=== PATIENT | female | born 1955 | race American Indian/Alaskan Native ===

== ENCOUNTER 2016-12-07 10:17 | Emergency (ER) | payer MEDICARE ==
[2016-12-07 10:41] VITALS: BP 127/83
[2016-12-07] MEDS ORDERED: INDOCIN PO ONE (13:00)
--- NOTE | 2016-12-07 13:00 | XRay Report ---
RIGHT KNEE, 3 views: History: Pain and swelling. The bony architecture is intact without evidence of fracture or dislocation. No significant soft tissue abnormality is seen. IMPRESSION: Normal right knee.
--- NOTE | 2016-12-07 13:17 | Emergency Department Report ---
ED Extremity Problem HPI - General Chief complaint: Extremity Injury, Lower Stated complaint: RT KNEE PAIN Time Seen by Provider: 12/07/16 12:13 Source: patient Mode of arrival: Ambulatory Limitations: No Limitations - History of Present Illness Initial comments: PT c/o R knee pain since Saturday. PT states she has a hx of gout and she thought the pain would go away. PT denies injury or trauma but states that she does remember stumbling when walking out of [employer] on Saturday. PT has been ambulatory at home with cane and she drove herself to the ED. MD Complaint: joint paint -: Gradual, days(s) Location: right, knee History of Same: No Severity scale (0 -10): 9 Quality: aching, sharp (if moving knee ) Improves with: rest Worsens with: walking, palpation Associated Symptoms: denies other symptoms. denies: fever - Related Data Previous Rx's Medication Instructions Recorded Last Taken Type Acetaminophen/Codeine [Tylenol #3] 1 tab PO Q6H PRN #12 tab 12/07/16 Unknown Rx Indomethacin 50 mg PO Q8H PRN #12 capsule 12/07/16 Unknown Rx Allergies Allergy/AdvReac Type Severity Reaction Status Date / Time No Known Allergies Allergy Verified 12/30/13 10:39 ED Review of Systems ROS: Stated complaint: RT KNEE PAIN Other details as noted in HPI Constitutional: denies: chills, fever Gastrointestinal: denies: nausea, vomiting Musculoskeletal: joint swelling Skin: denies: change in color Neurological: denies: headache ED Past Medical Hx - Past Medical History Previous Medical History?: Yes Hx Hypertension: Yes Hx Diabetes: Yes Additional medical history: chronic back pain. gout - Surgical History Past Surgical History?: Yes Additional Surgical History: L kidney removal - Social History Smoking Status: Never Smoker Substance Use Type: None - Medications Home Medications: Home Medications Medication Instructions Recorded Confirmed Last Taken Type Acetaminophen/Codeine [Tylenol #3] 1 tab PO Q6H PRN #12 tab 12/07/16 Unknown Rx Indomethacin 50 mg PO Q8H PRN #12 capsule 12/07/16 Unknown Rx ED Physical Exam - General Limitations: No Limitations General appearance: alert, in no apparent distress - Head Head exam: Present: atraumatic, normocephalic - Eye Eye exam: Present: normal appearance. Absent: conjunctival injection - Neck Neck exam: Present: normal inspection, full ROM - Respiratory Respiratory exam: Present: normal lung sounds bilaterally. Absent: respiratory distress, wheezes - Cardiovascular Cardiovascular Exam: Present: regular rate, normal rhythm - Expanded Lower Extremity Exam Right Knee exam: Present: full ROM, tenderness, swelling (ant ). Absent: ecchymosis, deformity, crepidus, erythema Lower Leg exam: Present: normal inspection. Absent: tenderness, swelling, palpable cord Ankle exam: Present: normal inspection, full ROM. Absent: tenderness Neuro vascular tendon exam: Absent: pulse deficit - Back Exam Back exam: Present: normal inspection, full ROM - Neurological Exam Neurological exam: Present: alert, oriented X3 - Psychiatric Psychiatric exam: Present: normal affect, normal mood - Skin Skin exam: Present: warm, dry, intact ED Course Vital Signs 12/07/16 10:36 Temperature 99.0 F Pulse Rate 111 H Respiratory 18 Rate Blood Pressure 127/83 O2 Sat by Pulse 100 Oximetry - Reevaluation(s) Reevaluation #1: 12/07/16 13:30 PT aware of XR result and plan of care. PT has no questions at this time. - Pulse Oximetry Interpretation Digit-Finger Initial Pulse Oximetry Readin Actions Taken: none ED Medical Decision Making - Radiology Data Radiology results: report reviewed R knee- NAP - Differential Diagnosis gout, oa, strain, effusion Critical care attestation.: If time is entered above; I have spent that time in minutes in the direct care of this critically ill patient, excluding procedure time. ED Disposition Clinical Impression: Acute pain of right knee Disposition: DISCHARGED TO HOME OR SELFCARE Is pt being admited?: No Does the pt Need Aspirin: No Condition: Stable Instructions: Knee Sprain (ED) Additional Instructions: No driving or ETOH after taking Tylenol #3 Prescriptions: Acetaminophen/Codeine [Tylenol #3] 1 tab PO Q6H PRN #12 tab PRN Reason: Pain , Severe (7-10) Indomethacin 50 mg PO Q8H PRN #12 capsule PRN Reason: Pain Referrals: PRIMARY CARE, [Primary Care Provider] - 3-5 Days SONU HENRIQUEZ MD [Staff Physician] - 3-5 Days Time of Disposition: 13:33
== END 2016-12-07 13:41 | disposition home or self-care (01) ==
LOC: ED 10:17
DX: M25.561 Pain in right knee (principal); I10 Essential (primary) hypertension; E11.9 Type 2 diabetes mellitus without complications; G89.29 Other chronic pain; Z90.5 Acquired absence of kidney

== ENCOUNTER 2016-12-24 15:00 | Emergency (ER) | payer MEDICARE ==
[2016-12-24 15:50] VITALS: BP 131/84
--- NOTE | 2016-12-24 16:24 | Emergency Department Report ---
HPI - General Chief Complaint: Upper Respiratory Infection Time Seen by Provider: 12/24/16 16:09 - HPI HPI: Patient is a 61-year-old female presents to ED complaining of dry to productive cough 1 week. Patient states cough is intermittently throughout the day. Patient states cough is getting worse and usually worse at night. Patient denies fevers / chills/nausea/vomiting/chest pain/shortness of breath/ difficulty breathing/ diarrhea or constipation or any other problems. ED Past Medical Hx - Past Medical History Previous Medical History?: Yes Hx Hypertension: Yes Hx Diabetes: Yes Additional medical history: chronic back pain, Bronchitis. gout - Surgical History Past Surgical History?: Yes Additional Surgical History: L kidney removal - Social History Smoking Status: Never Smoker Substance Use Type: Non Opiate Pain, Prescribed - Medications Home Medications: Home Medications Medication Instructions Recorded Confirmed Last Taken Type Acetaminophen/Codeine [Tylenol #3] 1 tab PO Q6H PRN #12 tab 12/07/16 Unknown Rx Indomethacin 50 mg PO Q8H PRN #12 capsule 12/07/16 Unknown Rx ALBUTEROL Inhaler [ProAir HFA 2 puff IH QID PRN #1 pump 12/24/16 Unknown Rx Inhaler] Benzonatate [Tessalon Perles] 100 mg PO Q8HR #21 capsule 12/24/16 Unknown Rx Promethazine [Phenergan 6.25 mg/5 5 ml PO Q6H PRN #60 ml 12/24/16 Unknown Rx ml ORAL LIQ] ED Review of Systems ROS: Stated complaint: COLD Other details as noted in HPI Constitutional: denies: chills, fever Eyes: denies: eye pain, eye discharge, vision change ENT: denies: ear pain, throat pain, dental pain, hearing loss Respiratory: cough. denies: shortness of breath, wheezing Cardiovascular: denies: chest pain, palpitations Endocrine: no symptoms reported Gastrointestinal: denies: abdominal pain, nausea, vomiting, diarrhea, constipation Genitourinary: denies: urgency, dysuria, discharge Musculoskeletal: denies: back pain, joint swelling, arthralgia Skin: denies: rash, lesions Neurological: denies: headache, weakness, paresthesias Psychiatric: denies: anxiety, depression Hematological/Lymphatic: denies: easy bleeding, easy bruising Physical Exam - Physical Exam Vital Signs: Vital Signs 12/24/16 15:46 Temperature 98.2 F Pulse Rate 100 H Respiratory 22 Rate Blood Pressure 131/84 O2 Sat by Pulse 100 Oximetry Physical Exam: GENERAL: Alert and oriented x3, no apparent distress, Normal Gait, atraumatic. HEAD: Head is normocephalic and a-traumatic. EYES: Extra ocular muscles are intact. Pupils are equal, round, and reactive to light and accommodation. EARS: symetrical, atraumatic, gross auditory nml bilaterally. NOSE: Nose symetrical, Nontender,Nares appeared normal. MOUTH:Mouth is well hydrated and without lesions. Tonsils nonerythematous or swollen, Uvula midline, Tongue not elevated. Mucous membranes are moist. Posterior pharynx clear, no exudate or lesions. Patent airways. NECK: Supple. Non edematous, No carotid bruits. No lymphadenopathy or thyromegaly. No C-spine tenderness LUNGS: Symetrical with respiration, No wheezing, no rales or crackles, CTAB. HEART: S1, S2 present, regular rate and rhythm without murmur, no rubs, no gallops. ABDOMEN: No organomegaly was noted,Positive bowel sounds, soft, and non- distended. . Nontender to palpation on all Quadrants, NO CVA tenderness. SKIN: Warm and dry, No lesions, No ulceration or induration present. ED Course Vital Signs 12/24/16 15:46 Temperature 98.2 F Pulse Rate 100 H Respiratory 22 Rate Blood Pressure 131/84 O2 Sat by Pulse 100 Oximetry ED Medical Decision Making - Medical Decision Making 61-year-old female presents with bronchitis. Course: Patient received 60 mg of prednisone. Discussed the patient take medication as prescribed. Discussed the patient bronchitis can last from 2-6 weeks and can take over-the- counter symptomatic relief. Discussed home medication of cough suppressants and albuterol inhaler. Discussed the patient to use as needed for cough. Discussed to follow up with primary care physician as needed. Vital signs are stable patient is in no acute or respiratory distress. Verbalization understands all those discussed and will comply to follow up Critical care attestation.: If time is entered above; I have spent that time in minutes in the direct care of this critically ill patient, excluding procedure time. ED Disposition Clinical Impression: Bronchitis Disposition: DISCHARGED TO HOME OR SELFCARE Is pt being admited?: No Does the pt Need Aspirin: No Condition: Stable Instructions: Chronic Bronchitis (ED) Prescriptions: ALBUTEROL Inhaler [ProAir HFA Inhaler] 2 puff IH QID PRN #1 pump PRN Reason: Shortness Of Breath Benzonatate [Tessalon Perles] 100 mg PO Q8HR #21 capsule Promethazine [Phenergan 6.25 mg/5 ml ORAL LIQ] 5 ml PO Q6H PRN #60 ml PRN Reason: Nausea And Vomiting Referrals: SAGE SPRINGER MD [Referring] - 3-5 Days [facility] [Outside] - 3-5 Days [facility] [Outside] - 3-5 Days Forms: Work/School Release Form(ED) Time of Disposition: 16:30
[2016-12-24] MEDS ORDERED: DELTASONE PO ONE (16:26)
== END 2016-12-24 16:42 | disposition home or self-care (01) ==
LOC: ED 15:00
DX: J40 Bronchitis, not specified as acute or chronic (principal); I10 Essential (primary) hypertension; E11.9 Type 2 diabetes mellitus without complications; G89.29 Other chronic pain; M10.9 Gout, unspecified
CPT/HCPCS: 99282; J7512

== ENCOUNTER 2017-01-24 10:12 | Outpatient (CLI) | payer MEDICARE ==
[2017-01-24 10:29] LABS: Basophils % (Auto) 0.6 % (0.0-1.8); Eosinophils % (Auto) 3.7 % (0.0-4.3); Hematocrit 35.6 % (30.3-42.9); Hemoglobin 11.3 gm/dl (10.1-14.3); Mean Corpuscular HGB Conc 32 % (30-34); Mean Corpuscular Hemoglobin 26 pg (28-32); Mean Corpuscular Volume 83 fl (79-97); Platelet Count 133 K/mm3 (140-440); Red Blood Count 4.29 M/mm3 (3.65-5.03); White Blood Count 5.1 K/mm3 (4.5-11.0)
[2017-01-24 10:42] LABS: Bacteria,Urine 1+ /HPF (Negative); Bilirubin,Urine NEG (Negative); Blood,Urine NEG (Negative); Ketones,Urine NEG (Negative); Leukocyte Esterase,Urine LG (Negative); Mucus,Urine FEW /HPF; Nitrite,Urine NEG (Negative); Protein,Urine <15 mg/dL mg/dL (Negative); Urobilinogen,Urine < 2.0 mg/dL (<2.0)
[2017-01-24 10:48] LABS: Anion Gap 22 mmol/L; Blood Urea Nitrogen 15 mg/dL (7-17); Calcium 9.1 mg/dL (8.4-10.2); Carbon Dioxide 20 mmol/L (22-30); Chloride 101.8 mmol/L (98-107); Glucose 314 mg/dL (65-100); Sodium 140 mmol/L (137-145)
== END 2017-01-24 10:13 | disposition home or self-care (01) ==
LOC: LAB 10:12
PROVIDERS: ATTEND Internal Medicine Nephrology
DX: I12.9 Hypertensive chronic kidney disease with stage 1 through stage 4 chronic kidney disease, or unspecified chronic kidney disease (principal); N18.2 Chronic kidney disease, stage 2 (mild); E11.22 Type 2 diabetes mellitus with diabetic chronic kidney disease
CPT/HCPCS: 36415; 80048; 81001; 82570; 84156; 85025

== ENCOUNTER 2017-07-29 09:09 | Outpatient (CLI) | payer MEDICARE ==
[2017-07-29 09:33] LABS: Basophils % (Auto) 0.8 % (0.0-1.8); Eosinophils % (Auto) 4.6 % (0.0-4.3); Hematocrit 37.8 % (30.3-42.9); Hemoglobin 12.3 gm/dl (10.1-14.3); Mean Corpuscular HGB Conc 33 % (30-34); Mean Corpuscular Hemoglobin 27 pg (28-32); Mean Corpuscular Volume 83 fl (79-97); Platelet Count 175 K/mm3 (140-440); Red Blood Count 4.57 M/mm3 (3.65-5.03); Red Cell Distribution Width 14.6 % (13.2-15.2)
[2017-07-29 09:39] LABS: Bilirubin,Urine NEG (Negative); Blood,Urine NEG (Negative); Ketones,Urine NEG (Negative); Leukocyte Esterase,Urine NEG (Negative); Mucus,Urine FEW /HPF; Nitrite,Urine NEG (Negative); Protein,Urine <15 mg/dL mg/dL (Negative); Urobilinogen,Urine < 2.0 mg/dL (<2.0)
[2017-07-29 09:47] LABS: Anion Gap 17 mmol/L; BUN/Creatinine Ratio 17; Blood Urea Nitrogen 15 mg/dL (7-17); Calcium 9.5 mg/dL (8.4-10.2); Carbon Dioxide 27 mmol/L (22-30); Glucose 145 mg/dL (65-100); Potassium 4.3 mmol/L (3.6-5.0); Sodium 141 mmol/L (137-145); Uric Acid 8.3 mg/dL (3.5-7.6)
== END 2017-07-29 09:10 | disposition home or self-care (01) ==
LOC: LAB 09:09
PROVIDERS: ATTEND Internal Medicine Nephrology
DX: I12.9 Hypertensive chronic kidney disease with stage 1 through stage 4 chronic kidney disease, or unspecified chronic kidney disease (principal); N18.2 Chronic kidney disease, stage 2 (mild); E11.22 Type 2 diabetes mellitus with diabetic chronic kidney disease; E79.0 Hyperuricemia without signs of inflammatory arthritis and tophaceous disease; R82.90 Unspecified abnormal findings in urine
CPT/HCPCS: 36415; 80048; 81001; 82570; 84156; 84550; 85025

== ENCOUNTER 2017-09-07 11:05 | Emergency (ER) | payer MEDICARE ==
[2017-09-07 11:12] VITALS: BP 150/90
[2017-09-07 11:37] LABS: Basophils # (Auto) 0.1 K/mm3 (0.0-0.1); Eosinophils # (Auto) 0.2 K/mm3 (0.0-0.4); Eosinophils % (Auto) 2.3 % (0.0-4.3); Hematocrit 37.9 % (30.3-42.9); Hemoglobin 12.4 gm/dl (10.1-14.3); Lymphocytes # (Auto) 1.7 K/mm3 (1.2-5.4); Lymphocytes % (Auto) 22.9 % (13.4-35.0); Mean Corpuscular HGB Conc 33 % (30-34); Mean Corpuscular Hemoglobin 27 pg (28-32); Mean Corpuscular Volume 82 fl (79-97); Monocytes # (Auto) 0.5 K/mm3 (0.0-0.8); Monocytes % (Auto) 6.1 % (0.0-7.3); Platelet Count 183 K/mm3 (140-440); Red Blood Count 4.64 M/mm3 (3.65-5.03); Red Cell Distribution Width 14.4 % (13.2-15.2)
--- NOTE | 2017-09-07 12:08 | XRay Report ---
Right hand 3 views: History: Right middle finger swelling. Findings: There is severe arthritic change is noted at the proximal interphalangeal joint middle finger right hand. Also soft tissue swelling noted. No periosteal reaction lytic lesion or evidence of acute fracture. Arthritic changes also noted at the interphalangeal joint second fourth and fifth fingers and first carpometacarpal joint metacarpal phalangeal joint in first interphalangeal joint. Impression: Findings as detailed above.
[2017-09-07] MEDS ORDERED: BACTRIM DS PO ONE (12:14)
[2017-09-07] MEDS ORDERED: INDOCIN PO ONE (12:14)
--- NOTE | 2017-09-07 12:17 | Emergency Department Report ---
HPI - General Chief Complaint: Extremity Injury, Upper Time Seen by Provider: 09/07/17 11:59 - HPI HPI: The patient is a 62 yo female with a history of gout, whom presents for evaluation of pain to the right hand and third digit. The patient reports 2 days of dorsal right hand third digit pain, nausea since severity, throbbing in quality, exacerbated with movement of the third digit of right hand. She shares that she has experienced the same issue in the past greater than one year ago. She denies puncture wound to the hand or third digit, fever, chills, night sweats, abscess, paresthesia, motor deficit. ED Past Medical Hx - Past Medical History Previous Medical History?: Yes Hx Hypertension: Yes Hx Diabetes: Yes Additional medical history: chronic back pain, Bronchitis. gout - Surgical History Past Surgical History?: Yes Additional Surgical History: L kidney removal - Social History Smoking Status: Never Smoker Substance Use Type: Non Opiate Pain, Prescribed - Medications Home Medications: Home Medications Medication Instructions Recorded Confirmed Last Taken Type ALBUTEROL Inhaler [ProAir HFA 2 puff IH QID PRN #1 pump 12/24/16 Unknown Rx Inhaler] Benzonatate [Tessalon Perles] 100 mg PO Q8HR #21 capsule 12/24/16 Unknown Rx Promethazine [Phenergan 6.25 mg/5 5 ml PO Q6H PRN #60 ml 12/24/16 Unknown Rx ml ORAL LIQ] Acetaminophen/Codeine [Tylenol 1 tab PO Q6H PRN #12 tab 09/07/17 Unknown Rx /Codeine # 3 tab] Cephalexin [Keflex] 500 mg PO QID #30 capsule 09/07/17 Unknown Rx Indomethacin 50 mg PO Q8H PRN #12 capsule 09/07/17 Unknown Rx ED Review of Systems ROS: Stated complaint: RIGHT FINGER PAIN Other details as noted in HPI Constitutional: denies: fever ENT: denies: throat or neck pain Respiratory: denies: cough, shortness of breath Cardiovascular: denies: chest pain Endocrine: denies unexplained weight loss or gain Gastrointestinal: denies: abdominal pain, nausea Genitourinary: denies: dysuria Musculoskeletal: right hand/finger pain denies: leg swelling Skin: denies: rash Neurological: denies: headache Hematological/Lymphatic: denies: easy bleeding or easy bruising Psych: denies sadness or hopelessness Physical Exam - Physical Exam Vital Signs: Vital Signs 09/07/17 11:09 Temperature 98.7 F Pulse Rate 109 H Respiratory 20 Rate Blood Pressure 150/90 O2 Sat by Pulse 99 Oximetry Physical Exam: General: well-nourished, well-developed, no acute distress Head: Normocephalic, atraumatic Eyes: normal sclera ENT: Mucous membranes are pink and moist Neck: trachea midline, neck supple, No neck stiffness, no cervical adenopathy Respiratory: Breath sounds equal bilaterally, no wheezing, rales, or rhonchi Cardio: S1 and S2 present, no murmurs, rubs, gallops, capillary refill is brisk Musc: Mild erythema present to the dorsal aspect of the mid right hand and proximal third digit, there is no fusiform swelling of the digit, there is no pain with passive extension of the third digit, capillary refill is brisk and sensation intact as well in the 3rd digit Skin: No rash Neuro: no facial drooping, normal speech Psych: Normal affect ED Course Vital Signs 09/07/17 11:09 Temperature 98.7 F Pulse Rate 109 H Respiratory 20 Rate Blood Pressure 150/90 O2 Sat by Pulse 99 Oximetry ED Medical Decision Making - Lab Data Result diagrams: 09/07/17 11:26 09/07/17 11:26 - Medical Decision Making The patient was seen and examined by myself. The patient is placed on a charge histotechnologist and continuous pulse ox. On initial evaluation, the patient was found to be in no distress. Evaluation orders were placed. The patient is given pain medicine. X-ray of the right hand and digits is negative for acute fractures, dislocations, or findings concerning for osteomyelitis. Findings of evaluation are consistent with acute cellulitis of the right hand and third digit. As the patient is afebrile without tenderness along the flexor tendon sheath, no pain with passive extension, and has a normal WBC, the patient is low likelihood for flexor tenosynovitis at this time. The patient is given Bactrim and Keflex for treatment of cellulitis. The patient was reevaluated and reported that their symptoms were markedly improved. The patient is stable for discharge with outpatient follow-up. The patient is given follow-up and return instructions. The patient expressed understanding and agreed with the plan. The patient is discharged in stable condition. Critical care attestation.: If time is entered above; I have spent that time in minutes in the direct care of this critically ill patient, excluding procedure time. ED Disposition Clinical Impression: Cellulitis of finger of right hand, Pain in finger of right hand Disposition: TO HOME OR SELFCARE Is pt being admited?: No Does the pt Need Aspirin: No Condition: Stable Instructions: Cellulitis (ED), Acute Gouty Arthritis (ED) Prescriptions: Acetaminophen/Codeine [Tylenol /Codeine # 3 tab] 1 tab PO Q6H PRN #12 tab PRN Reason: Pain , Severe (7-10) Cephalexin [Keflex] 500 mg PO QID #30 capsule Indomethacin 50 mg PO Q8H PRN #12 capsule PRN Reason: Pain Referrals: STEVE MARQUEZ MD [Primary Care Provider] - 3-5 Days Time of Disposition: 12:17
[2017-09-07 12:33] LABS: BUN/Creatinine Ratio 14; Blood Urea Nitrogen 14 mg/dL (7-17); Hemolysis Index 4
== END 2017-09-07 13:20 | disposition home or self-care (01) ==
LOC: ED 11:05
DX: L03.011 Cellulitis of right finger (principal); M79.644 Pain in right finger(s); I10 Essential (primary) hypertension; E11.9 Type 2 diabetes mellitus without complications; G89.29 Other chronic pain
CPT/HCPCS: 36415; 80048; 85025; 99284

== ENCOUNTER 2017-09-17 10:33 | Emergency (ER) | payer MEDICARE ==
[2017-09-17] MEDS ORDERED: MORPHINE IV ONE (15:30)
[2017-09-17] MEDS ORDERED: NACL 0.9% 500 ML 500 ML IV ONE (15:30)
[2017-09-17] MEDS ORDERED: ZOFRAN IV ONE (15:30)
--- NOTE | 2017-09-17 15:35 | Emergency Department Report ---
ED Extremity Problem HPI - General Chief complaint: Extremity Injury, Lower Stated complaint: KNEE PAIN/GOUT Time Seen by Provider: 09/17/17 15:13 Source: patient Mode of arrival: Wheelchair Limitations: No Limitations - History of Present Illness Initial comments: PT c/o R knee pain since yesterday. HX of gout and R knee pain. Previously seen by ortho and had injections in R knee. States injections made knee more painful and swollen. PT states her R middle finger has been swollen since 09-05-17. PT states she was seen in the ED and was given pain medication and antibiotics. PT states she took the medication and the redness improved but she still has swelling and pain. PT c/o n/v yesterday. Denies sick contacts. States stomach feels swollen. MD Complaint: extremity pain, joint swelling -: Gradual, days(s) Location: right, upper extremity, lower extremity, knee, other (finger ) History of Same: Yes -: Yes arthralgia, No associated chest pain Severity scale (0 -10): 9 Quality: aching, sharp, constant Consistency: constant Improves with: nothing Worsens with: weight bearing, walking, palpation Associated Symptoms: arthralgias. denies: chest pain, shortness of breath, fever - Related Data Previous Rx's Medication Instructions Recorded Last Taken Type ALBUTEROL Inhaler [ProAir HFA 2 puff IH QID PRN #1 pump 12/24/16 Unknown Rx Inhaler] Acetaminophen/Codeine [Tylenol #3] 1 tab PO Q6H PRN #12 tab 09/17/17 Unknown Rx Ondansetron [Zofran Odt] 4 mg PO Q8HR PRN #10 tab.rapdis 09/17/17 Unknown Rx methOCARBAMOL [Robaxin TAB] 500 mg PO Q6H PRN #15 tablet 09/17/17 Unknown Rx Allergies Allergy/AdvReac Type Severity Reaction Status Date / Time No Known Allergies Allergy Verified 09/17/17 10:51 ED Review of Systems ROS: Stated complaint: KNEE PAIN/GOUT Other details as noted in HPI Comment: All other systems reviewed and negative Constitutional: chills. denies: fever ENT: denies: congestion Respiratory: denies: cough, shortness of breath, SOB with exertion, SOB at rest Cardiovascular: denies: chest pain Gastrointestinal: abdominal pain, nausea, vomiting. denies: constipation Genitourinary: denies: dysuria Musculoskeletal: back pain, joint swelling, arthralgia Skin: denies: change in color ED Past Medical Hx - Past Medical History Hx Hypertension: Yes Hx Diabetes: Yes Hx Deep Vein Thrombosis: No Additional medical history: chronic back pain, Bronchitis. gout, "neck problems " - Surgical History Additional Surgical History: L kidney removal - Social History Smoking Status: Never Smoker Substance Use Type: None - Medications Home Medications: Home Medications Medication Instructions Recorded Confirmed Last Taken Type ALBUTEROL Inhaler [ProAir HFA 2 puff IH QID PRN #1 pump 12/24/16 Unknown Rx Inhaler] Acetaminophen/Codeine [Tylenol #3] 1 tab PO Q6H PRN #12 tab 09/17/17 Unknown Rx Ondansetron [Zofran Odt] 4 mg PO Q8HR PRN #10 tab.rapdis 09/17/17 Unknown Rx methOCARBAMOL [Robaxin TAB] 500 mg PO Q6H PRN #15 tablet 09/17/17 Unknown Rx ED Physical Exam - General Limitations: No Limitations General appearance: alert, in no apparent distress - Head Head exam: Present: atraumatic, normocephalic, normal inspection - Eye Eye exam: Present: normal appearance, PERRL, EOMI. Absent: conjunctival injection - ENT ENT exam: Present: normal exam, normal external ear exam - Neck Neck exam: Present: normal inspection, full ROM - Respiratory Respiratory exam: Present: normal lung sounds bilaterally. Absent: respiratory distress, wheezes, chest wall tenderness, accessory muscle use, decreased breath sounds - Cardiovascular Cardiovascular Exam: Present: regular rate, normal rhythm, normal heart sounds - GI/Abdominal GI/Abdominal exam: Present: soft, diminished bowel sounds. Absent: distended, tenderness, guarding, rebound - Extremities Exam Extremities exam: Present: normal capillary refill. Absent: calf tenderness - Expanded Upper Extremity Exam Left General: Present: normal inspection Right Shoulder Exam: Present: normal inspection Elbow exam: Present: normal inspection, full ROM. Absent: tenderness Forearm Wrist exam: Present: normal inspection, full ROM. Absent: tenderness Hand Wrist exam: Present: full ROM, tenderness (R long finger ), swelling (R long finger ). Absent: deformity, dislocation, erythema, amputation, subungual hematoma Vascular: Absent: vascular compromise - Expanded Lower Extremity Exam Left Knee exam: Present: normal inspection, full ROM, full knee extension. Absent: tenderness, swelling, dislocation, effusion Lower Leg exam: Present: normal inspection, full ROM. Absent: tenderness, swelling, erythema, palpable cord, Houston's sign Ankle exam: Present: normal inspection, full ROM. Absent: tenderness Foot/Toe exam: Present: normal inspection, full ROM, tenderness, swelling ( trace left lateral foot edema, no erythema, no rashes ). Absent: erythema, amputation, puncture wound, foreign body, calcaneal tenderness, tenderness at base of 5th metatarsal Neuro vascular tendon exam: Absent: pulse deficit, foot drop Right Knee exam: Present: tenderness, swelling. Absent: full ROM, deformity, dislocation, erythema, full knee extension Ankle exam: Present: normal inspection, full ROM. Absent: tenderness Neuro vascular tendon exam: Present: no vascular compromise. Absent: pulse deficit - Back Exam Back exam: Present: normal inspection, full ROM. Absent: tenderness, CVA tenderness (R), CVA tenderness (L) - Neurological Exam Neurological exam: Present: alert, oriented X3 - Psychiatric Psychiatric exam: Present: normal affect, normal mood - Skin Skin exam: Present: warm, dry, intact, normal color ED Course Vital Signs 09/17/17 09/17/17 10:51 17:53 Temperature 98.3 F 98.9 F Pulse Rate 90 95 H Respiratory 20 20 Rate Blood Pressure 148/96 Blood Pressure 132/79 [Right] O2 Sat by Pulse 100 98 Oximetry - Reevaluation(s) Reevaluation #1: 09/17/17 15:44 PT aware of plan of care. Reevaluation #2: 09/17/17 18:12 pt states abd discomfort improved. abd soft and non tender, pt tolerating po. pt aware she will have to follow up with ortho for recurrent joint pain and swelling. pt verbalizes understanding Reevaluation #3: 09/17/17 18:25 PT placed in knee immobilizer by nursing staff. PT NVI - Pulse Oximetry Interpretation Digit-Finger Initial Pulse Oximetry Readin Actions Taken: none ED Medical Decision Making - Lab Data Result diagrams: 09/17/17 15:51 09/17/17 15:51 Lab Results 09/17/17 09/17/17 09/17/17 Range/Units 15:51 15:51 15:51 WBC 9.6 (4.5-11.0) K/mm3 RBC 4.84 (3.65-5.03) M/mm3 Hgb 12.8 (10.1-14.3) gm/dl Hct 38.9 (30.3-42.9) % MCV 81 (79-97) fl MCH 27 L (28-32) pg MCHC 33 (30-34) % RDW 14.6 (13.2-15.2) % Plt Count 217 (140-440) K/mm3 Lymph % (Auto) 22.2 (13.4-35.0) % [place] % (Auto) 4.8 (0.0-7.3) % Eos % (Auto) 1.4 (0.0-4.3) % Baso % (Auto) 0.7 (0.0-1.8) % Lymph # 2.1 (1.2-5.4) K/mm3 [place] # 0.5 (0.0-0.8) K/mm3 Eos # 0.1 (0.0-0.4) K/mm3 Baso # 0.1 (0.0-0.1) K/mm3 Seg Neutrophils % 70.9 H (40.0-70.0) % Seg Neutrophils # 6.8 (1.8-7.7) K/mm3 Sodium 144 (137-145) mmol/L Potassium 3.9 (3.6-5.0) mmol/L Chloride 99.9 (98-107) mmol/L Carbon Dioxide 23 (22-30) mmol/L Anion Gap 25 mmol/L BUN 15 (7-17) mg/dL Creatinine 0.8 (0.7-1.2) mg/dL Estimated GFR > 60 ml/min BUN/Creatinine Ratio 19 % Glucose 97 (65-100) mg/dL Calcium 10.3 H (8.4-10.2) mg/dL Total Bilirubin 0.60 (0.1-1.2) mg/dL AST 16 (5-40) units/L ALT 12 (7-56) units/L Alkaline Phosphatase 65 (35-129) units/L Total Protein 8.6 H (6.3-8.2) g/dL Albumin 4.7 (3.9-5) g/dL Albumin/Globulin Ratio 1.2 % Lipase 15 (13-60) units/L Urine Color Yellow (Yellow) Urine Turbidity Clear (Clear) Urine pH 5.0 (5.0-7.0) Ur Specific [place] 1.024 (1.003-1.030) Urine Protein 30 mg/dl (Negative) mg/dL Urine Glucose (UA) Neg (Negative) mg/dL Urine Ketones Neg (Negative) mg/dL Urine Blood Neg (Negative) Urine Nitrite Neg (Negative) Urine Bilirubin Neg (Negative) Urine Urobilinogen < 2.0 (<2.0) mg/dL Ur Leukocyte Esterase Neg (Negative) Urine WBC (Auto) 1.0 (0.0-6.0) /HPF Urine RBC (Auto) 3.0 (0.0-6.0) /HPF U Epithel Cells (Auto) < 1.0 (0-13.0) /HPF Urine Mucus Few /HPF - Differential Diagnosis gout, uti, age Critical Care Time: No Critical care attestation.: If time is entered above; I have spent that time in minutes in the direct care of this critically ill patient, excluding procedure time. ED Disposition Clinical Impression: Pain in finger of right hand Nausea & vomiting Qualifiers: Vomiting type: unspecified Vomiting Intractability: non-intractable Qualified Code(s): R11.2 - Nausea with vomiting, unspecified Right knee pain Qualifiers: Chronicity: acute Qualified Code(s): M25.561 - Pain in right knee Disposition: DC-01 TO HOME OR SELFCARE Is pt being admited?: No Does the pt Need Aspirin: No Condition: Stable Instructions: Acute Nausea and Vomiting (ED), Abdominal Pain (ED), Arthralgia ( ED) Additional Instructions: No driving or alcohol after taking Tylenol #3 or Robaxin follow up with ortho wear knee immobilizer when up and active Prescriptions: Acetaminophen/Codeine [Tylenol #3] 1 tab PO Q6H PRN #12 tab PRN Reason: Pain , Severe (7-10) methOCARBAMOL [Robaxin TAB] 500 mg PO Q6H PRN #15 tablet PRN Reason: Muscle Spasm Ondansetron [Zofran Odt] 4 mg PO Q8HR PRN #10 tab.rapdis PRN Reason: Nausea Referrals: SANAM WALLACE MD [Primary Care Provider] - 3-5 Days WILBERT MICHAEL MD [Staff Physician] - 3-5 Days Time of Disposition: 18:18
[2017-09-17 17:04] LABS: Basophils # (Auto) 0.1 K/mm3 (0.0-0.1); Basophils % (Auto) 0.7 % (0.0-1.8); Eosinophils # (Auto) 0.1 K/mm3 (0.0-0.4); Eosinophils % (Auto) 1.4 % (0.0-4.3); Hematocrit 38.9 % (30.3-42.9); Hemoglobin 12.8 gm/dl (10.1-14.3); Lymphocytes # (Auto) 2.1 K/mm3 (1.2-5.4); Lymphocytes % (Auto) 22.2 % (13.4-35.0); Mean Corpuscular HGB Conc 33 % (30-34); Mean Corpuscular Hemoglobin 27 pg (28-32); Mean Corpuscular Volume 81 fl (79-97); Monocytes # (Auto) 0.5 K/mm3 (0.0-0.8); Monocytes % (Auto) 4.8 % (0.0-7.3); Platelet Count 217 K/mm3 (140-440); Red Blood Count 4.84 M/mm3 (3.65-5.03); Red Cell Distribution Width 14.6 % (13.2-15.2)
[2017-09-17 17:06] LABS: Alanine Aminotransferase 12 units/L (7-56); Albumin 4.7 g/dL (3.9-5); BUN/Creatinine Ratio 19; Blood Urea Nitrogen 15 mg/dL (7-17); Calcium 10.3 mg/dL (8.4-10.2); Hemolysis Index 7; Lipase 15 units/L (13-60)
[2017-09-17 17:09] LABS: Bilirubin,Urine NEG (Negative); Blood,Urine NEG (Negative); Color,Urine Yellow (Yellow); Mucus,Urine FEW /HPF; Nitrite,Urine NEG (Negative); Urobilinogen,Urine < 2.0 mg/dL (<2.0)
[2017-09-17 17:54] VITALS: BP 132/79
[2017-09-17] MEDS ORDERED: NORCO 5/325 PO ONE (17:56)
== END 2017-09-17 18:48 | disposition home or self-care (01) ==
LOC: ED 10:33
DX: M25.561 Pain in right knee (principal); M79.644 Pain in right finger(s); R11.2 Nausea with vomiting, unspecified; I10 Essential (primary) hypertension; E11.9 Type 2 diabetes mellitus without complications; G89.29 Other chronic pain; M10.9 Gout, unspecified
CPT/HCPCS: 29505; 36415; 80053; 81001; 83690; 85025; 96374; 96375; 99284; J2270; J2405; J7040

== ENCOUNTER 2017-12-30 09:00 | Outpatient (CLI) | payer MEDICARE ==
[2017-12-30 09:16] LABS: Basophils % (Auto) 0.7 % (0.0-1.8); Eosinophils # (Auto) 0.3 K/mm3 (0.0-0.4); Eosinophils % (Auto) 3.9 % (0.0-4.3); Hematocrit 38.4 % (30.3-42.9); Hemoglobin 12.6 gm/dl (10.1-14.3); Lymphocytes % (Auto) 31.4 % (13.4-35.0); Mean Corpuscular HGB Conc 33 % (30-34); Mean Corpuscular Hemoglobin 27 pg (28-32); Mean Corpuscular Volume 82 fl (79-97); Monocytes # (Auto) 0.4 K/mm3 (0.0-0.8); Monocytes % (Auto) 5.5 % (0.0-7.3); Platelet Count 196 K/mm3 (140-440); Red Blood Count 4.68 M/mm3 (3.65-5.03); Red Cell Distribution Width 15.2 % (13.2-15.2)
[2017-12-30 09:21] LABS: Bacteria,Urine 1+ /HPF (Negative); Bilirubin,Urine NEG (Negative); Blood,Urine NEG (Negative); Color,Urine Yellow (Yellow); Mucus,Urine FEW /HPF; Protein,Urine <15 mg/dL mg/dL (Negative); Urobilinogen,Urine < 2.0 mg/dL (<2.0)
[2017-12-30 09:30] LABS: BUN/Creatinine Ratio 19; Blood Urea Nitrogen 15 mg/dL (7-17); Calcium 9.8 mg/dL (8.4-10.2); Hemolysis Index 3
[2017-12-30 13:32] LABS: Creatinine,Urine 176.8 mg/dL (0.1-20.0); Protein/Creatinine Ratio,Urine 0.11
== END 2017-12-30 09:01 | disposition home or self-care (01) ==
LOC: LAB 09:00
PROVIDERS: ATTEND Internal Medicine Nephrology
DX: I12.9 Hypertensive chronic kidney disease with stage 1 through stage 4 chronic kidney disease, or unspecified chronic kidney disease (principal); N18.2 Chronic kidney disease, stage 2 (mild); E78.5 Hyperlipidemia, unspecified; E79.0 Hyperuricemia without signs of inflammatory arthritis and tophaceous disease
CPT/HCPCS: 36415; 80048; 81001; 82570; 84156; 84550; 85025

== ENCOUNTER 2018-05-03 14:57 | Emergency (ER) | payer MEDICARE ==
[2018-05-03 15:12] VITALS: BP 114/84
--- NOTE | 2018-05-03 16:55 | Emergency Department Report ---
ED Extremity Problem HPI - General Chief complaint: Extremity Injury, Lower Stated complaint: RT FOOT PAIN Time Seen by Provider: 05/03/18 16:46 Source: patient Mode of arrival: Ambulatory Limitations: No Limitations - History of Present Illness Initial comments: Patient is a 63-year-old female who is presenting with some right lateral foot pain. Patient is noticed some swelling right lateral foot at the midfoot line. Patient denies any injury. Patient has a low-grade temperature here states she is just getting over an upper respiratory infection with some sinus congestion. Patient states those symptoms are improving. Patient's noted the swelling to the right lateral foot for approximately a week. Hurts when she walks. - Related Data Previous Rx's Medication Instructions Recorded Last Taken Type ALBUTEROL Inhaler (OR & NICU) 2 puff IH QID PRN #1 pump 12/24/16 Unknown Rx [ProAir HFA Inhaler] Acetaminophen/Codeine [Tylenol 1 tab PO Q6H PRN #12 tab 10/26/17 Unknown Rx /Codeine # 3 tab] Allopurinol [Zyloprim] 100 mg PO BID #60 tablet 10/26/17 Unknown Rx Gabapentin [Neurontin] 800 mg PO HS #30 capsule 10/26/17 Unknown Rx Lisinopril [Zestril] 40 mg PO DAILY #30 tablet 10/26/17 Unknown Rx Nortriptyline [Pamelor] 25 mg PO DAILY #30 capsule 10/26/17 Unknown Rx Simvastatin [Zocor TAB] 20 mg PO DAILY #30 tablet 10/26/17 Unknown Rx amLODIPine [Norvasc] 10 mg PO DAILY #30 tablet 10/26/17 Unknown Rx metFORMIN [Glucophage] 500 mg PO BID #60 tablet 10/26/17 Unknown Rx methOCARBAMOL [Robaxin TAB] 500 mg PO Q6H PRN #15 tablet 10/26/17 Unknown Rx Clindamycin [Clindamycin CAP] 300 mg PO Q8H 7 Days cap 05/03/18 Unknown Rx HYDROcodone/APAP 5-325 [[place] 1 each PO Q4HR PRN #12 tablet 05/03/18 Unknown Rx 5/325] Ibuprofen [Motrin] 600 mg PO Q8H PRN #20 tablet 05/03/18 Unknown Rx Allergies Allergy/AdvReac Type Severity Reaction Status Date / Time No Known Allergies Allergy Verified 10/24/17 20:12 ED Review of Systems ROS: Stated complaint: RT FOOT PAIN Other details as noted in HPI Comment: All other systems reviewed and negative ED Past Medical Hx - Past Medical History Previous Medical History?: Yes Hx Hypertension: Yes Hx Congestive Heart Failure: No Hx Diabetes: Yes Hx Deep Vein Thrombosis: No Hx Asthma: Yes Hx COPD: No Additional medical history: chronic back pain, Bronchitis, sleep apnea and CPAP, gout. gout, "neck problems" - Surgical History Past Surgical History?: Yes Additional Surgical History: L kidney removal - Social History Smoking Status: Never Smoker Substance Use Type: Prescribed - Medications Home Medications: Home Medications Medication Instructions Recorded Confirmed Last Taken Type ALBUTEROL Inhaler (OR & NICU) 2 puff IH QID PRN #1 pump 12/24/16 10/25/17 Unknown Rx [ProAir HFA Inhaler] Acetaminophen/Codeine [Tylenol 1 tab PO Q6H PRN #12 tab 10/26/17 Unknown Rx /Codeine # 3 tab] Allopurinol [Zyloprim] 100 mg PO BID #60 tablet 10/26/17 Unknown Rx Gabapentin [Neurontin] 800 mg PO HS #30 capsule 10/26/17 Unknown Rx Lisinopril [Zestril] 40 mg PO DAILY #30 tablet 10/26/17 Unknown Rx Nortriptyline [Pamelor] 25 mg PO DAILY #30 capsule 10/26/17 Unknown Rx Simvastatin [Zocor TAB] 20 mg PO DAILY #30 tablet 10/26/17 Unknown Rx amLODIPine [Norvasc] 10 mg PO DAILY #30 tablet 10/26/17 Unknown Rx metFORMIN [Glucophage] 500 mg PO BID #60 tablet 10/26/17 Unknown Rx methOCARBAMOL [Robaxin TAB] 500 mg PO Q6H PRN #15 tablet 10/26/17 Unknown Rx Clindamycin [Clindamycin CAP] 300 mg PO Q8H 7 Days cap 05/03/18 Unknown Rx HYDROcodone/APAP 5-325 [[place] 1 each PO Q4HR PRN #12 tablet 05/03/18 Unknown Rx 5/325] Ibuprofen [Motrin] 600 mg PO Q8H PRN #20 tablet 05/03/18 Unknown Rx ED Physical Exam - General Limitations: No Limitations General appearance: alert, in no apparent distress - Head Head exam: Present: atraumatic, normocephalic - Eye Eye exam: Present: normal appearance - ENT ENT exam: Present: mucous membranes moist - Neck Neck exam: Present: normal inspection - Respiratory Respiratory exam: Present: normal lung sounds bilaterally. Absent: respiratory distress, wheezes, rales, rhonchi - Cardiovascular Cardiovascular Exam: Present: regular rate, normal rhythm. Absent: systolic murmur, diastolic murmur, rubs, gallop - GI/Abdominal GI/Abdominal exam: Present: soft, normal bowel sounds. Absent: distended, tenderness, guarding, rebound - Extremities Exam Extremities exam: Present: normal inspection, other (at the level of the mid foot on the right lower extremity laterally there is a small area of firmness and swelling. There is no overlying erythema or fluctuance. There is no warmth. There is tenderness in this area upon palpation. Patient does also have some small amount of edema at the lateral malleolus. There is no pain on palpation to the lateral malleolus.) - Back Exam Back exam: Present: normal inspection - Neurological Exam Neurological exam: Present: alert, oriented X3 - Psychiatric Psychiatric exam: Present: normal affect, normal mood - Skin Skin exam: Present: warm, dry, intact, normal color. Absent: rash ED Course Vital Signs 05/03/18 15:09 Temperature 100.6 F H Pulse Rate 117 H Respiratory 17 Rate Blood Pressure 114/84 O2 Sat by Pulse 99 Oximetry ED Medical Decision Making - Medical Decision Making Because of the patient's fever and lack of other symptoms despite the foot not appearing to be classically cellulitic I will place the patient on antibiotics. Estimated PA and atypical presentation. Patient is tender and there is swelling with firmness. There is just no erythema. Patient is not ill- appearing and appears well and is a good candidate for outpatient therapy. Patient discharged home at this time. Critical care attestation.: If time is entered above; I have spent that time in minutes in the direct care of this critically ill patient, excluding procedure time. ED Disposition Clinical Impression: Cellulitis of foot Disposition: - TO HOME OR SELFCARE Is pt being admited?: No Does the pt Need Aspirin: No Condition: Stable Instructions: Cellulitis (ED) Referrals: PRIMARY CARE, [Primary Care Provider] - 3-5 Days Time of Disposition: 16:56
== END 2018-05-03 17:03 | disposition home or self-care (01) ==
LOC: ED 14:57
DX: L03.115 Cellulitis of right lower limb (principal); I10 Essential (primary) hypertension; E11.9 Type 2 diabetes mellitus without complications; J45.909 Unspecified asthma, uncomplicated
CPT/HCPCS: 99282

== ENCOUNTER 2018-05-07 09:17 | Outpatient (CLI) | payer MEDICARE ==
[2018-05-07 09:49] LABS: Bacteria,Urine 1+ /HPF (Negative); Bilirubin,Urine NEG (Negative); Blood,Urine NEG (Negative); Color,Urine Yellow (Yellow); Protein,Urine <15 mg/dL mg/dL (Negative); Urobilinogen,Urine < 2.0 mg/dL (<2.0)
[2018-05-07 09:54] LABS: Basophils % (Auto) 0.3 % (0.0-1.8); Eosinophils # (Auto) 0.2 K/mm3 (0.0-0.4); Eosinophils % (Auto) 4.3 % (0.0-4.3); Hematocrit 37.3 % (30.3-42.9); Hemoglobin 12.2 gm/dl (10.1-14.3); Lymphocytes # (Auto) 1.6 K/mm3 (1.2-5.4); Mean Corpuscular HGB Conc 33 % (30-34); Mean Corpuscular Hemoglobin 27 pg (28-32); Mean Corpuscular Volume 83 fl (79-97); Monocytes # (Auto) 0.3 K/mm3 (0.0-0.8); Monocytes % (Auto) 6.5 % (0.0-7.3); Platelet Count 164 K/mm3 (140-440); Red Blood Count 4.49 M/mm3 (3.65-5.03); Red Cell Distribution Width 13.9 % (13.2-15.2)
[2018-05-07 10:10] LABS: BUN/Creatinine Ratio 13; Blood Urea Nitrogen 12 mg/dL (7-17); Calcium 9.8 mg/dL (8.4-10.2); Hemolysis Index 6; Uric Acid 7.8 mg/dL (3.5-7.6)
[2018-05-07 12:57] LABS: Creatinine,Urine 139.9 mg/dL (0.1-20.0); Protein/Creatinine Ratio,Urine 0.06
== END 2018-05-07 09:18 | disposition home or self-care (01) ==
LOC: LAB 09:17
PROVIDERS: ATTEND Internal Medicine Nephrology
DX: E11.22 Type 2 diabetes mellitus with diabetic chronic kidney disease (principal); I12.9 Hypertensive chronic kidney disease with stage 1 through stage 4 chronic kidney disease, or unspecified chronic kidney disease; N18.2 Chronic kidney disease, stage 2 (mild); E79.0 Hyperuricemia without signs of inflammatory arthritis and tophaceous disease; E78.5 Hyperlipidemia, unspecified; K21.9 Gastro-esophageal reflux disease without esophagitis; J45.909 Unspecified asthma, uncomplicated; M10.9 Gout, unspecified; Z90.710 Acquired absence of both cervix and uterus; Z90.5 Acquired absence of kidney
CPT/HCPCS: 36415; 80048; 81001; 82570; 84156; 84550; 85025

== ENCOUNTER 2018-12-23 14:51 | Emergency (ER) | payer MEDICARE ==
[2018-12-23 15:49] VITALS: BP 127/83
--- NOTE | 2018-12-23 15:49 | Emergency Department Report ---
Chief Complaint: Skin Rash Stated Complaint: RASH ON R ARM Time Seen by Provider: 12/23/18 15:49 - HPI History of Present Illness: RASH R ARM HX DM MSE COMPLETED - Exam Vital Signs: Vital Signs 12/23/18 15:47 Temperature 98.9 F Pulse Rate 100 H Respiratory 20 Rate Blood Pressure 127/83 O2 Sat by Pulse 99 Oximetry MSE screening note: Focused history and physical exam performed. Due to findings the following was ordered: ED Disposition for MSE Condition: Stable
--- NOTE | 2018-12-23 18:26 | Emergency Department Report ---
ED Rash HPI - HPI Chief Complaint: Skin Rash Stated Complaint: RASH ON R ARM Time Seen by Provider: 12/23/18 15:49 Duration: 11 days Location: Upper Extremities (right) Suspected Cause: Unknown Rash Symptoms: Yes Itching, Yes Blistering, No Facial Swelling, No Tongue/Oral Swelling, No Breathing Difficulties, No Choking Sensation, No Wheezing/Dyspnea, No Peeling, No Fever, No Lightheaded, No Malaise, No Myalgias Other History: This is a 63-year-old -[place] female that presents with a rash to right upper extremity and right side of neck 11 days. Past medical history of asthma, diabetes, and hypertension. Patient states she is applying an alcohol and skin repair location with no improvement of symptoms. Patient reports burning sensation, itching, any increased redness. Patient states that she can just get pain under control it a lot better. Denies difficulty swallowing, tongue swelling, recent injury, numbness or tingling, or weakness. ED Review of Systems ROS: Stated complaint: RASH ON R ARM Other details as noted in HPI Constitutional: denies: chills, fever Respiratory: denies: cough, shortness of breath, wheezing Cardiovascular: denies: chest pain, palpitations Gastrointestinal: denies: abdominal pain, nausea, diarrhea Skin: rash. denies: lesions Neurological: denies: headache, weakness, paresthesias Psychiatric: denies: anxiety, depression ED Past Medical Hx - Past Medical History Previous Medical History?: Yes Hx Hypertension: Yes Hx Congestive Heart Failure: No Hx Diabetes: Yes Hx Deep Vein Thrombosis: No Hx Asthma: Yes Hx COPD: No Additional medical history: chronic back pain, Bronchitis, sleep apnea and CPAP,gout. gout, "neck problems" - Surgical History Past Surgical History?: Yes Additional Surgical History: L kidney removal - Social History Smoking Status: Never Smoker Substance Use Type: None - Medications Home Medications: Home Medications Medication Instructions Recorded Confirmed Last Taken Type ALBUTEROL Inhaler (OR & NICU) 2 puff IH QID PRN #1 pump 12/24/16 10/25/17 Unknown Rx [ProAir HFA Inhaler] Acetaminophen/Codeine [Tylenol 1 tab PO Q6H PRN #12 tab 10/26/17 Unknown Rx /Codeine # 3 tab] Allopurinol [Zyloprim] 100 mg PO BID #60 tablet 10/26/17 Unknown Rx Gabapentin [Neurontin] 800 mg PO HS #30 capsule 10/26/17 Unknown Rx Lisinopril [Zestril] 40 mg PO DAILY #30 tablet 10/26/17 Unknown Rx Nortriptyline [Pamelor] 25 mg PO DAILY #30 capsule 10/26/17 Unknown Rx Simvastatin (Nf) [Zocor TAB] 20 mg PO DAILY #30 tablet 10/26/17 Unknown Rx amLODIPine [Norvasc] 10 mg PO DAILY #30 tablet 10/26/17 Unknown Rx metFORMIN [Glucophage] 500 mg PO BID #60 tablet 10/26/17 Unknown Rx methOCARBAMOL [Robaxin TAB] 500 mg PO Q6H PRN #15 tablet 10/26/17 Unknown Rx Clindamycin [Clindamycin CAP] 300 mg PO Q8H 7 Days cap 05/03/18 Unknown Rx HYDROcodone/APAP 5-325 [[place] 1 each PO Q4HR PRN #12 tablet 05/03/18 Unknown Rx 5/325] Ibuprofen [Motrin] 600 mg PO Q8H PRN #20 tablet 05/03/18 Unknown Rx Valacyclovir HCl [Valtrex] 1,000 mg PO BID #20 tablet 12/23/18 Unknown Rx traMADol [Ultram 50 MG tab] 50 mg PO Q6HR PRN #12 tablet 12/23/18 Unknown Rx Rash Exam - Exam General: Vital signs noted. No distress. Alert and acting appropriately. HEENT: No Periorbital Edema, No Conjuctival Injection, No Chemosis, No Perioral Edema, No Tongue Edema, No Uvular Edema, No Compromised Airway, No Drooling Lungs: Yes Good Air Exchange (Normal Breath Sounds), No Wheezes, No Ronchi, No Stridor, No Cough, No Labored Respirations, No Retractions, No Use of Accessory Muscles, No Other Abnormal Lung Sounds Heart: Yes Regular, No Murmur Skin: Yes Tenderness, Yes Erythema (erythematous vesicular rash to right lateral forearm and neck), No Urticarial Rash, No Maculopapular Rash, No Morbilliform rash, No Bulla(e), No Excoriations, No Weeping, No Edema, No Encrustations ED Course Vital Signs 12/23/18 15:47 Temperature 98.9 F Pulse Rate 100 H Respiratory 20 Rate Blood Pressure 127/83 O2 Sat by Pulse 99 Oximetry ED Medical Decision Making - Medical Decision Making Patient was examined by me. Vitals are normal and patient is in no acute distress. Erythematous vesicular rash to right upper extremity and right side of neck, susceptible herpes zoster. Patient informed of results. Start valacyclovir and tramadol. Plan discussed with patient to discharge home and treat outpatient. He agrees with ER plan. Patient discharged home in stable condition. Follow up with PCP in 2-3 days. Critical care attestation.: If time is entered above; I have spent that time in minutes in the direct care of this critically ill patient, excluding procedure time. ED Disposition Clinical Impression: Vesicular rash Herpes zoster Qualifiers: Herpes zoster complications: with other complications Qualified Code(s): B02.8 - Zoster with other complications Disposition: TO HOME OR SELFCARE Is pt being admited?: No Does the pt Need Aspirin: No Condition: Stable Instructions: Herpes Zoster (ED) Additional Instructions: Complete full course of antivirals as prescribed. Take pain medication every 6- 8 hours as needed. Follow-up with your primary care provider if symptoms are not improving as discussed. Prescriptions: traMADol [Ultram 50 MG tab] 50 mg PO Q6HR PRN #12 tablet PRN Reason: Pain Valacyclovir HCl [Valtrex] 1,000 mg PO BID #20 tablet Referrals: BUBBA LEONARDO JR, MD [Staff Physician] - 3-5 Days ROMAIN LOMAS MD [Staff Physician] - 3-5 Days [facility] [Provider Group] - 3-5 Days Time of Disposition: 18:31
== END 2018-12-23 18:41 | disposition home or self-care (01) ==
LOC: ED 14:51
DX: B02.9 Zoster without complications (principal); R23.8 Other skin changes; G89.29 Other chronic pain; I10 Essential (primary) hypertension; E11.9 Type 2 diabetes mellitus without complications; J45.909 Unspecified asthma, uncomplicated; Z79.84 Long term (current) use of oral hypoglycemic drugs

== ENCOUNTER 2019-02-23 09:08 | Outpatient (CLI) | payer MEDICARE ==
[2019-02-23 09:38] LABS: Hematocrit 37.4 % (30.3-42.9); Hemoglobin 12.4 gm/dl (10.1-14.3); Mean Corpuscular HGB Conc 33 % (30-34); Mean Corpuscular Volume 82 fl (79-97); Platelet Count 180 K/mm3 (140-440); Red Blood Count 4.55 M/mm3 (3.65-5.03); Red Cell Distribution Width 15.2 % (13.2-15.2)
[2019-02-23 09:45] LABS: Bilirubin,Urine NEG (Negative); Blood,Urine NEG (Negative); Color,Urine Yellow (Yellow); Mucus,Urine 1+ /HPF; Protein,Urine <15 mg/dL mg/dL (Negative); Urobilinogen,Urine < 2.0 mg/dL (<2.0)
[2019-02-23 10:00] LABS: Alanine Aminotransferase 13 units/L (7-56); Albumin 4.2 g/dL (3.9-5); BUN/Creatinine Ratio 15; Blood Urea Nitrogen 12 mg/dL (7-17); Calcium 9.5 mg/dL (8.4-10.2); Hemolysis Index 7; Uric Acid 7.9 mg/dL (3.5-7.6)
[2019-02-23 13:27] LABS: Creatinine,Urine 220.9 mg/dL (0.1-20.0); Protein/Creatinine Ratio,Urine 0.1
== END 2019-02-23 09:09 | disposition home or self-care (01) ==
LOC: LAB 09:08
PROVIDERS: ATTEND Internal Medicine Nephrology
DX: E11.22 Type 2 diabetes mellitus with diabetic chronic kidney disease (principal); E79.0 Hyperuricemia without signs of inflammatory arthritis and tophaceous disease; N18.9 Chronic kidney disease, unspecified
CPT/HCPCS: 36415; 80053; 81001; 82570; 84156; 84550; 85027

== ENCOUNTER 2019-06-07 13:57 | Emergency (ER) | payer MEDICARE ==
--- NOTE | 2019-06-07 14:03 | Emergency Department Report ---
Blank Doc - Documentation Documentation: 64-year-old female that presents with rectal bleeding and abdominal pain. This initial assessment/diagnostic orders/clinical plan/treatment(s) is/are subject to change based on patient's health status, clinical progression and re- assessment by fellow clinical providers in the ED. Further treatment and workup at subsequent clinical providers discretion. Patient/guardians urged not to elope from the ED as their condition may be serious if not clinically assessed and managed. Initial orders include: 1- Patient sent to [facility] for further evaluation and treatment 2- labs 3- UA
[2019-06-07 15:19] LABS: Basophils % (Auto) 0.3 % (0.0-1.8); Eosinophils # (Auto) 0.2 K/mm3 (0.0-0.4); Eosinophils % (Auto) 2.9 % (0.0-4.3); Hematocrit 38.7 % (30.3-42.9); Hemoglobin 12.9 gm/dl (10.1-14.3); Lymphocytes # (Auto) 1.5 K/mm3 (1.2-5.4); Lymphocytes % (Auto) 19.8 % (13.4-35.0); Mean Corpuscular HGB Conc 33 % (30-34); Mean Corpuscular Volume 81 fl (79-97); Monocytes # (Auto) 0.4 K/mm3 (0.0-0.8); Monocytes % (Auto) 4.8 % (0.0-7.3); Platelet Count 195 K/mm3 (140-440); Red Blood Count 4.76 M/mm3 (3.65-5.03); Red Cell Distribution Width 14.7 % (13.2-15.2)
[2019-06-07 15:31] LABS: INR 0.89 (0.87-1.13)
[2019-06-07 15:32] LABS: Partial Thromboplastin Time 28.1 Sec. (24.2-36.6)
[2019-06-07 15:36] LABS: Bacteria,Urine 1+ /HPF (Negative); Bilirubin,Urine NEG (Negative); Blood,Urine NEG (Negative); Color,Urine Yellow (Yellow); Hyaline Casts,Urine 1 /LPF; Mucus,Urine 2+ /HPF; Urobilinogen,Urine < 2.0 mg/dL (<2.0)
[2019-06-07 15:42] LABS: Alanine Aminotransferase 10 units/L (7-56); Albumin 4.4 g/dL (3.9-5); BUN/Creatinine Ratio 17; Blood Urea Nitrogen 15 mg/dL (7-17); Calcium 9.7 mg/dL (8.4-10.2); Hemolysis Index 19
--- NOTE | 2019-06-07 16:42 | Emergency Department Report ---
ED Abdominal Pain HPI - General Chief Complaint: GI Bleed Stated Complaint: ABD PAIN/RECTAL BLEEDING Time Seen by Provider: 06/07/19 14:01 Source: patient Mode of arrival: Ambulatory Limitations: No Limitations - History of Present Illness Initial Comments: Patient is 64 years old female with history of hypertension and diabetes. Patient presented to the ER complaining of left lower quadrant abdominal pain associated with bloody diarrhea since last night. Patient also stated that she's been having some chills and no fever. Patient also stated that she has some nausea but no vomiting. MD Complaint: abdominal pain -: Last night Location: LLQ Radiation: none Migration to: no migration Quality: fullness, sharp - Related Data Previous Rx's Medication Instructions Recorded Last Taken Type ALBUTEROL Inhaler (OR & NICU) 2 puff IH QID PRN #1 pump 12/24/16 Unknown Rx [ProAir HFA Inhaler] Acetaminophen/Codeine [Tylenol 1 tab PO Q6H PRN #12 tab 10/26/17 Unknown Rx /Codeine # 3 tab] Allopurinol [Zyloprim] 100 mg PO BID #60 tablet 10/26/17 Unknown Rx Gabapentin [Neurontin] 800 mg PO HS #30 capsule 10/26/17 Unknown Rx Lisinopril [Zestril] 40 mg PO DAILY #30 tablet 10/26/17 Unknown Rx Nortriptyline [Pamelor] 25 mg PO DAILY #30 capsule 10/26/17 Unknown Rx Simvastatin (Nf) [Zocor TAB] 20 mg PO DAILY #30 tablet 10/26/17 Unknown Rx amLODIPine [Norvasc] 10 mg PO DAILY #30 tablet 10/26/17 Unknown Rx metFORMIN [Glucophage] 500 mg PO BID #60 tablet 10/26/17 Unknown Rx methOCARBAMOL [Robaxin TAB] 500 mg PO Q6H PRN #15 tablet 10/26/17 Unknown Rx Clindamycin [Clindamycin CAP] 300 mg PO Q8H 7 Days cap 05/03/18 Unknown Rx HYDROcodone/APAP 5-325 [[place] 1 each PO Q4HR PRN #12 tablet 05/03/18 Unknown Rx 5/325] Ibuprofen [Motrin] 600 mg PO Q8H PRN #20 tablet 05/03/18 Unknown Rx Valacyclovir HCl [Valtrex] 1,000 mg PO BID #20 tablet 12/23/18 Unknown Rx traMADol [Ultram 50 MG tab] 50 mg PO Q6HR PRN #12 tablet 12/23/18 Unknown Rx Allergies Allergy/AdvReac Type Severity Reaction Status Date / Time No Known Allergies Allergy Verified 10/24/17 20:12 ED Review of Systems ROS: Stated complaint: ABD PAIN/RECTAL BLEEDING Other details as noted in HPI Comment: All other systems reviewed and negative Constitutional: chills. denies: fever Respiratory: denies: cough, orthopnea, shortness of breath, SOB with exertion, SOB at rest Cardiovascular: denies: chest pain, palpitations Gastrointestinal: abdominal pain, nausea, diarrhea, hematochezia. denies: vomiting, constipation, hematemesis, melena Genitourinary: denies: urgency, dysuria Musculoskeletal: denies: back pain Neurological: denies: headache, weakness, numbness, paresthesias, confusion ED Past Medical Hx - Past Medical History Hx Hypertension: Yes Hx Congestive Heart Failure: No Hx Diabetes: Yes Hx Deep Vein Thrombosis: No Hx Asthma: Yes Hx COPD: No Additional medical history: chronic back pain, Bronchitis, sleep apnea and CPAP,gout. gout, "neck problems" - Surgical History Additional Surgical History: L kidney removal - Social History Smoking Status: Never Smoker Substance Use Type: None - Medications Home Medications: Home Medications Medication Instructions Recorded Confirmed Last Taken Type ALBUTEROL Inhaler (OR & NICU) 2 puff IH QID PRN #1 pump 12/24/16 10/25/17 Unknown Rx [ProAir HFA Inhaler] Acetaminophen/Codeine [Tylenol 1 tab PO Q6H PRN #12 tab 10/26/17 Unknown Rx /Codeine # 3 tab] Allopurinol [Zyloprim] 100 mg PO BID #60 tablet 10/26/17 Unknown Rx Gabapentin [Neurontin] 800 mg PO HS #30 capsule 10/26/17 Unknown Rx Lisinopril [Zestril] 40 mg PO DAILY #30 tablet 10/26/17 Unknown Rx Nortriptyline [Pamelor] 25 mg PO DAILY #30 capsule 10/26/17 Unknown Rx Simvastatin (Nf) [Zocor TAB] 20 mg PO DAILY #30 tablet 10/26/17 Unknown Rx amLODIPine [Norvasc] 10 mg PO DAILY #30 tablet 10/26/17 Unknown Rx metFORMIN [Glucophage] 500 mg PO BID #60 tablet 10/26/17 Unknown Rx methOCARBAMOL [Robaxin TAB] 500 mg PO Q6H PRN #15 tablet 10/26/17 Unknown Rx Clindamycin [Clindamycin CAP] 300 mg PO Q8H 7 Days cap 05/03/18 Unknown Rx HYDROcodone/APAP 5-325 [[place] 1 each PO Q4HR PRN #12 tablet 05/03/18 Unknown Rx 5/325] Ibuprofen [Motrin] 600 mg PO Q8H PRN #20 tablet 05/03/18 Unknown Rx Valacyclovir HCl [Valtrex] 1,000 mg PO BID #20 tablet 12/23/18 Unknown Rx traMADol [Ultram 50 MG tab] 50 mg PO Q6HR PRN #12 tablet 12/23/18 Unknown Rx ED Physical Exam - General Limitations: No Limitations General appearance: alert, in no apparent distress - Head Head exam: Present: atraumatic, normocephalic, normal inspection - Eye Eye exam: Present: normal appearance, PERRL - ENT ENT exam: Present: normal exam, normal orophraynx, mucous membranes moist - Neck Neck exam: Present: normal inspection, full ROM. Absent: tenderness, meningismus, lymphadenopathy, thyromegaly - Respiratory Respiratory exam: Present: normal lung sounds bilaterally - Cardiovascular Cardiovascular Exam: Present: regular rate, normal rhythm, normal heart sounds - GI/Abdominal GI/Abdominal exam: Present: soft, tenderness (left lower quadrant tenderness), normal bowel sounds. Absent: distended, guarding, rebound, rigid, organomegaly, mass, bruit, pulsatile mass, hernia - Extremities Exam Extremities exam: Present: normal inspection, full ROM, normal capillary refill. Absent: tenderness, pedal edema, calf tenderness - Back Exam Back exam: Present: normal inspection, full ROM. Absent: CVA tenderness (R), C VA tenderness (L), muscle spasm, paraspinal tenderness, vertebral tenderness - Neurological Exam Neurological exam: Present: alert, oriented X3, CN II-XII intact, normal gait, reflexes normal - Psychiatric Psychiatric exam: Present: normal mood - Skin Skin exam: Present: warm, intact, normal color ED Course Vital Signs 06/07/19 06/07/19 06/07/19 14:02 16:32 16:45 Temperature 97.7 F Pulse Rate 111 H 91 H Respiratory 18 21 Rate Blood Pressure 153/82 172/89 167/91 Blood Pressure [Left] O2 Sat by Pulse 100 99 Oximetry 06/07/19 06/07/19 06/07/19 16:51 17:01 17:15 Temperature Pulse Rate 88 90 Respiratory 15 19 20 Rate Blood Pressure 167/91 172/89 Blood Pressure [Left] O2 Sat by Pulse 100 100 100 Oximetry 06/07/19 06/07/19 06/07/19 17:30 17:45 18:00 Temperature Pulse Rate 91 H 89 87 Respiratory 15 16 17 Rate Blood Pressure 157/97 157/97 160/91 Blood Pressure [Left] O2 Sat by Pulse 99 99 99 Oximetry 06/07/19 06/07/19 06/07/19 18:19 18:30 18:45 Temperature Pulse Rate 92 H 92 H Respiratory 18 16 Rate Blood Pressure 160/91 162/93 160/91 Blood Pressure [Left] O2 Sat by Pulse 100 98 100 Oximetry 06/07/19 06/07/19 19:15 20:00 Temperature 97.7 F Pulse Rate 93 H 90 Respiratory 15 22 Rate Blood Pressure 161/90 Blood Pressure 153/89 [Left] O2 Sat by Pulse 97 96 Oximetry ED Medical Decision Making - Lab Data Result diagrams: 06/07/19 14:57 06/07/19 14:57 - Radiology Data Radiology results: report reviewed - Medical Decision Making Patient is 64 years old female with history of hypertension and diabetes. Patient presented to the ER complaining of left lower quadrant abdominal pain associated with bloody diarrhea since last night. Patient also stated that she's been having some chills and no fever. Patient also stated that she has some nausea but no vomiting. Labs reviewed and is unremarkable. CT abdomen and pelvis as sigmoid diverticulitis. Patient received Zosyn. Patient still denied any nausea or vomiting. Patient is a candidate for outpatient treatment. Patient started on ciprofloxacin and Flagyl. Patient also advised to follow-up with her primary care physician in the next 2-3 days and to attend to the ER if symptoms are not improved. Critical care attestation.: If time is entered above; I have spent that time in minutes in the direct care of this critically ill patient, excluding procedure time. ED Disposition Clinical Impression: Abdominal pain, Acute diverticulitis Disposition: - TO HOME OR SELFCARE Is pt being admited?: No Condition: Stable Instructions: Abdominal Pain (ED), Diverticulitis (ED), Rectal Bleeding (ED) Referrals: BUBBA LEONARDO [Other] - 3-5 Days Forms: Accompanied Note
[2019-06-07] MEDS ORDERED: MORPHINE 4 MG/1 ML INJ IV ONE (20:17)
[2019-06-07] MEDS ORDERED: ONDANSETRON 4 MG/2 ML INJ IV ONE (20:17)
--- NOTE | 2019-06-07 20:59 | Cat Scan Report ---
CT ABDOMEN AND PELVIS WITH CONTRAST INDICATION: abdominal pain. TECHNIQUE: Axial CT images were obtained through the abdomen and pelvis after 100 cc Omnipaque [address] scans at this location are performed using CT dose reduction for ALARA by means of automated exposure control. COMPARISON: None available. FINDINGS: LOWER CHEST: No significant abnormality. LIVER: Simple 2.3 cm left hepatic cyst. GALLBLADDER: No significant abnormality. BILE DUCTS: No significant abnormality. PANCREAS: No significant abnormality. SPLEEN: No significant abnormality. ADRENALS: Left adrenal not visualized likely surgically absent. Right adrenal appears within normal l imits RIGHT KIDNEY and URETER: No significant abnormality. LEFT KIDNEY and URETER: Surgically absent. No nodularity or mass within the left nephrectomy bed. STOMACH and SMALL BOWEL: No significant abnormality. COLON: Moderate sigmoid diverticulosis with mild diverticulitis of proximal sigmoid colon. No abscess or free air. APPENDIX: Normal PERITONEUM: No free fluid. No free air. No fluid collection. LYMPH NODES: No significant adenopathy. AORTA and ARTERIES: No significant abnormality. IVC and VEINS: No significant abnormality. URINARY BLADDER: No significant abnormality. REPRODUCTIVE ORGANS: No significant abnormality. ADDITIONAL FINDINGS: None. SKELETAL SYSTEM: Moderate facet degenerative disease lower lumbar spine IMPRESSION: 1. Mild diverticulitis proximal sigmoid colon. 2. Moderate sigmoid diverticulosis. 3. 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 Signer Name: Alejo Booth MD Signed: 06/07/2019 8:55 PM Workstation Name: [id number]
[2019-06-07 22:28] VITALS: BP 144/83
[2019-06-07] MEDS ORDERED: PIPERACILLIN/TAZOBACTAM 3.375 3.375 GM/50 ML BAG IV ONE (22:30)
== END 2019-06-07 23:07 | disposition home or self-care (01) ==
LOC: ED 13:57
DX: K57.92 Diverticulitis of intestine, part unspecified, without perforation or abscess without bleeding (principal); I10 Essential (primary) hypertension; E11.9 Type 2 diabetes mellitus without complications; J45.909 Unspecified asthma, uncomplicated; G89.29 Other chronic pain; Z79.899 Other long term (current) drug therapy; Z79.84 Long term (current) use of oral hypoglycemic drugs
CPT/HCPCS: 36415; 74177; 80053; 81001; 83690; 85025; 85610; 85730; 93005; 93010; 96365; 96375; 99284; J2270; J2405; J2543; Q9967

== ENCOUNTER 2019-08-31 09:51 | Outpatient (CLI) | payer MEDICARE ==
[2019-08-31 10:21] LABS: Hematocrit 38.6 % (30.3-42.9); Hemoglobin 12.4 gm/dl (10.1-14.3); Mean Corpuscular HGB Conc 32 % (30-34); Mean Corpuscular Volume 82 fl (79-97); Red Blood Count 4.71 M/mm3 (3.65-5.03)
[2019-08-31 10:29] LABS: Bilirubin,Urine NEG (Negative); Blood,Urine NEG (Negative); Color,Urine Yellow (Yellow); Mucus,Urine FEW /HPF; Protein,Urine <15 mg/dL mg/dL (Negative); Urobilinogen,Urine < 2.0 mg/dL (<2.0)
[2019-08-31 10:44] LABS: BUN/Creatinine Ratio 20; Blood Urea Nitrogen 16 mg/dL (7-17); Calcium 9.7 mg/dL (8.4-10.2); Hemolysis Index 24
[2019-08-31 11:11] LABS: Platelet Count 164 K/mm3 (140-440)
[2019-08-31 12:19] LABS: Protein/Creatinine Ratio,Urine 0.08
== END 2019-08-31 09:52 | disposition home or self-care (01) ==
LOC: LAB 09:51
PROVIDERS: ATTEND Internal Medicine Nephrology
DX: N18.1 Chronic kidney disease, stage 1 (principal)
CPT/HCPCS: 36415; 80048; 81001; 82570; 84156; 85027

== ENCOUNTER 2019-11-17 09:25 | Outpatient (CLI) | payer MEDICARE ==
--- NOTE | 2019-11-17 11:19 | Mammography Report ---
DIGITAL SCREENING MAMMOGRAM WITH CAD, 11/17/2019 INDICATION: Routine screening mammography. TECHNIQUE: Digital bilateral 2D mammography was obtained in the craniocaudal and mediolateral obliq ue projections. This examination was interpreted with the benefit of Computer-Aided Detection analysi s. COMPARISON: 07/10/2017 FINDINGS: Breast Density: There are scattered areas of fibroglandular density. There is no evidence of dominant mass, suspicious calcifications or architectural distortion in eithe r breast. IMPRESSION: No mammographic evidence of malignancy. Follow up recommendation: Routine yearly BI-RADS Category 1: Negative. A "normal" or negative report should not discourage follow up or biopsy of a clinically significant f inding. A written summary of these findings will be mailed to the patient. The patient will be entered into a mammography reporting system which will generate a reminder letter for the patient's next appointmen t at the appropriate interval. The [employer] recommends yearly mammograms starting at age 40 and continuing as l peggy as a woman is in good health. Breast MRI is recommended for women with an approximate 20-25% or greater lifetime risk of breast cancer, including women with a strong family history of breast or ova paxton cancer or who have been treated for Hodgkin's disease. Signer Name: Dustin Jiménez MD Signed: 11/17/2019 11:14 AM Workstation Name: [id number]
--- NOTE | 2019-11-17 11:22 | Mammography Report ---
BONE DEXA CLINICAL: Postmenopausal. No comparison. TECHNIQUE: 2 site bone DEXA performed on an Hologic scanner. FINDINGS: The average BMD of the lumbar spine L1-L4 is 0.966g/cm squared with a T score of -0.7 and a Z score o f +0.1. The average total BMD of the left hip is 0.865 g/cm squared with a T score of -0.6and a Z score of -0 .2. IMPRESSION: 1. WHO classification: Normal with average fracture risk based on spine measurements. 2. WHO classification Normal with average fracture risk based on left hip measurements. RECOMMENDATION: Clinical correlation and routine screening. Definitions: BMD equal bone mineral density T score = BMD related to peak bone mass of young adult (Wallace expressed an standard deviation) Z score = age-matched BMD expressed in SD World health organization (WHO) diagnostic criteria Normal T score greater than equal to 1 standard deviation Osteopenia T score between -1 and -2.4 standard deviation Osteoporosis T score -2.5 standard deviation or below. Note: BMD is not the only risk factor for fracture; also consider factors such as the patient's age, risk of falling, previous osteoporotic fracture, family history of osteoporotic fractures, current sm oker and low body weight. Z scores are not calculated if greater than 80 years of age. Signer Name: Dustin Jiménez MD Signed: 11/17/2019 11:18 AM Workstation Name: [id number]
== END 2019-11-17 09:26 | disposition home or self-care (01) ==
LOC: MAMMO 09:25
PROVIDERS: ATTEND Family Medicine
DX: Z12.31 Encounter for screening mammogram for malignant neoplasm of breast (principal); Z13.820 Encounter for screening for osteoporosis; N64.89 Other specified disorders of breast; Z78.0 Asymptomatic menopausal state
CPT/HCPCS: 77067; 77080

== ENCOUNTER 2020-01-05 11:08 | Emergency (ER) | payer MEDICARE ==
[2020-01-05 11:20] VITALS: BP 158/91
--- NOTE | 2020-01-05 11:49 | Emergency Department Report ---
ED Back Pain/Injury HPI - General Chief Complaint: Back Pain/Injury Stated Complaint: STOMACH SWELLING/BACK PAIN Source: patient Limitations: No Limitations - History of Present Illness Initial Comments: 64-year-old female presents emergency department complaining of acute on chronic lower back pain which she is been has been developed off and on for several weeks. She is seen the orthopedist who advised her against surgery and is managing her pain with oral medications. She reports having a dull throbbing pain in the off and on across her back worse with range of motion but not associated with any urinary issues no fever, chills, sweats no chest pain or palpitations no vomiting but does report occasional constipation when she tries to use NSAIDs. She reports no trauma no trauma reports no change in her symptoms. She also reports a history of a long history of a chronic GI bleed that she has been been treating off and on for the past 5years with the care of her primary care care doctor last colonoscopy was about 5 years ago as well but she reports she likely has continued bleeding and wanted her numbers checked and she cannot get into her doctor. She reports no syncope no headache Radiation: none Severity: mild Consistency: constant Worsens With: none Context: turning/twisting, bending Associated Symptoms: denies: weakness, chest pain, difficulty walking, constipation, abdominal pain, loss of appetite, shortness of breath - Related Data Previous Rx's Medication Instructions Recorded Last Taken Type Albuterol INH(or & Nicu Only) 2 puff IH QID PRN #1 pump 12/24/16 Unknown Rx [ProAir HFA Inhaler] Acetaminophen/Codeine [Tylenol 1 tab PO Q6H PRN #12 tab 10/26/17 Unknown Rx /Codeine # 3 tab] Gabapentin [Neurontin] 800 mg PO HS #30 capsule 10/26/17 Unknown Rx Lisinopril [Zestril] 40 mg PO DAILY #30 tablet 10/26/17 Unknown Rx Nortriptyline [Pamelor] 25 mg PO DAILY #30 capsule 10/26/17 Unknown Rx Simvastatin (Nf) [Zocor TAB] 20 mg PO DAILY #30 tablet 10/26/17 Unknown Rx allopurinoL [Zyloprim] 100 mg PO BID #60 tablet 10/26/17 Unknown Rx amLODIPine 10 mg PO DAILY #30 tablet 10/26/17 Unknown Rx metFORMIN [Glucophage] 500 mg PO BID #60 tablet 10/26/17 Unknown Rx methOCARBAMOL [Robaxin TAB] 500 mg PO Q6H PRN #15 tablet 10/26/17 Unknown Rx Clindamycin [Clindamycin CAP] 300 mg PO Q8H 7 Days cap 05/03/18 Unknown Rx HYDROcodone/APAP 5-325 [[place] 1 each PO Q4HR PRN #12 tablet 05/03/18 Unknown Rx 5/325] Ibuprofen [Motrin] 600 mg PO Q8H PRN #20 tablet 05/03/18 Unknown Rx Valacyclovir HCl [Valtrex] 1,000 mg PO BID #20 tablet 12/23/18 Unknown Rx traMADoL [Ultram 50 MG tab] 50 mg PO Q6HR PRN #12 tablet 12/23/18 Unknown Rx Ciprofloxacin HCl [Ciprofloxacin 500 mg PO Q12HR #14 tab 06/07/19 Unknown Rx TAB] Ondansetron [Zofran Odt] 4 mg PO Q8HR PRN #14 tab.rapdis 06/07/19 Unknown Rx metroNIDAZOLE [Flagyl] 500 mg PO Q12HR #14 tab 06/07/19 Unknown Rx traMADoL [Ultram 50 MG tab] 50 mg PO Q4HR PRN #14 tablet 06/07/19 Unknown Rx methOCARBAMOL [Robaxin TAB] 500 mg PO BID #20 tab 01/05/20 Unknown Rx Allergies Allergy/AdvReac Type Severity Reaction Status Date / Time No Known Allergies Allergy Verified 10/24/17 20:12 ED Review of Systems ROS: Stated complaint: STOMACH SWELLING/BACK PAIN Other details as noted in HPI Comment: All other systems reviewed and negative ED Past Medical Hx - Past Medical History Previous Medical History?: Yes Hx Hypertension: Yes Hx Congestive Heart Failure: No Hx Diabetes: Yes Hx Deep Vein Thrombosis: No Hx Asthma: Yes Hx COPD: No Additional medical history: chronic back pain, Bronchitis, sleep apnea and CPAP,gout. gout, "neck problems" - Surgical History Past Surgical History?: Yes Additional Surgical History: L kidney removal - Social History Smoking Status: Never Smoker Substance Use Type: None - Medications Home Medications: Home Medications Medication Instructions Recorded Confirmed Last Taken Type Albuterol INH(or & Nicu Only) 2 puff IH QID PRN #1 pump 12/24/16 10/25/17 Unknown Rx [ProAir HFA Inhaler] Acetaminophen/Codeine [Tylenol 1 tab PO Q6H PRN #12 tab 10/26/17 Unknown Rx /Codeine # 3 tab] Gabapentin [Neurontin] 800 mg PO HS #30 capsule 10/26/17 Unknown Rx Lisinopril [Zestril] 40 mg PO DAILY #30 tablet 10/26/17 Unknown Rx Nortriptyline [Pamelor] 25 mg PO DAILY #30 capsule 10/26/17 Unknown Rx Simvastatin (Nf) [Zocor TAB] 20 mg PO DAILY #30 tablet 10/26/17 Unknown Rx allopurinoL [Zyloprim] 100 mg PO BID #60 tablet 10/26/17 Unknown Rx amLODIPine 10 mg PO DAILY #30 tablet 10/26/17 Unknown Rx metFORMIN [Glucophage] 500 mg PO BID #60 tablet 10/26/17 Unknown Rx methOCARBAMOL [Robaxin TAB] 500 mg PO Q6H PRN #15 tablet 10/26/17 Unknown Rx Clindamycin [Clindamycin CAP] 300 mg PO Q8H 7 Days cap 05/03/18 Unknown Rx HYDROcodone/APAP 5-325 [[place] 1 each PO Q4HR PRN #12 tablet 05/03/18 Unknown Rx 5/325] Ibuprofen [Motrin] 600 mg PO Q8H PRN #20 tablet 05/03/18 Unknown Rx Valacyclovir HCl [Valtrex] 1,000 mg PO BID #20 tablet 12/23/18 Unknown Rx traMADoL [Ultram 50 MG tab] 50 mg PO Q6HR PRN #12 tablet 12/23/18 Unknown Rx Ciprofloxacin HCl [Ciprofloxacin 500 mg PO Q12HR #14 tab 06/07/19 Unknown Rx TAB] Ondansetron [Zofran Odt] 4 mg PO Q8HR PRN #14 tab.rapdis 06/07/19 Unknown Rx metroNIDAZOLE [Flagyl] 500 mg PO Q12HR #14 tab 06/07/19 Unknown Rx traMADoL [Ultram 50 MG tab] 50 mg PO Q4HR PRN #14 tablet 06/07/19 Unknown Rx methOCARBAMOL [Robaxin TAB] 500 mg PO BID #20 tab 01/05/20 Unknown Rx ED Physical Exam - General Limitations: No Limitations General appearance: alert, in no apparent distress - Head Head exam: Present: atraumatic, normocephalic - Eye Eye exam: Present: normal appearance - ENT ENT exam: Present: mucous membranes moist - Neck Neck exam: Present: normal inspection - Respiratory Respiratory exam: Present: normal lung sounds bilaterally. Absent: respiratory distress - Cardiovascular Cardiovascular Exam: Present: regular rate, normal rhythm. Absent: systolic murmur, diastolic murmur, rubs, gallop - GI/Abdominal GI/Abdominal exam: Present: soft, normal bowel sounds - Extremities Exam Extremities exam: Present: normal inspection - Back Exam Back exam: Present: normal inspection - Neurological Exam Neurological exam: Present: alert, oriented X3 - Psychiatric Psychiatric exam: Present: normal affect, normal mood - Skin Skin exam: Present: warm, dry, intact, normal color. Absent: rash ED Course Vital Signs 01/05/20 11:19 Temperature 98.8 F Pulse Rate 107 H Respiratory 20 Rate Blood Pressure 158/91 O2 Sat by Pulse 100 Oximetry ED Medical Decision Making - Lab Data Result diagrams: 01/05/20 12:04 01/05/20 12:04 Critical care attestation.: If time is entered above; I have spent that time in minutes in the direct care of this critically ill patient, excluding procedure time. ED Disposition Clinical Impression: Chronic back pain Disposition: DC-01 TO HOME OR SELFCARE Is pt being admited?: No Does the pt Need Aspirin: No Condition: Stable Instructions: Chronic Back Pain (ED) Additional Instructions: Your hemoglobin was stable at 12.9 and the vital signs did return to normal range showing no further tachycardia please utilize your provided medication for your chronic back pain and follow-up with your orthopedic physician and follow- up with your doctor in regards to your 5-year history of GI complications Prescriptions: methOCARBAMOL [Robaxin TAB] 500 mg PO BID #20 tab Referrals: PRIMARY CARE, [Primary Care Provider] - 3-5 Days
[2020-01-05 12:27] LABS: Bilirubin,Urine NEG (Negative); Blood,Urine NEG (Negative); Color,Urine Yellow (Yellow); Granular Casts,Urine 3 /LPF; Mucus,Urine 2+ /HPF; Urobilinogen,Urine < 2.0 mg/dL (<2.0)
[2020-01-05 12:43] LABS: Basophils # (Auto) 0.1 K/mm3 (0.0-0.1); Basophils % (Auto) 1.5 % (0.0-1.8); Eosinophils # (Auto) 0.3 K/mm3 (0.0-0.4); Eosinophils % (Auto) 5.2 % (0.0-4.3); Hematocrit 40.5 % (30.3-42.9); Hemoglobin 12.9 gm/dl (10.1-14.3); Lymphocytes # (Auto) 1.8 K/mm3 (1.2-5.4); Lymphocytes % (Auto) 34.8 % (13.4-35.0); Mean Corpuscular HGB Conc 32 % (30-34); Mean Corpuscular Volume 81 fl (79-97); Monocytes # (Auto) 0.3 K/mm3 (0.0-0.8); Monocytes % (Auto) 5.3 % (0.0-7.3); Platelet Count 202 K/mm3 (140-440); Red Blood Count 4.98 M/mm3 (3.65-5.03); Red Cell Distribution Width 14.8 % (13.2-15.2)
[2020-01-05 13:02] LABS: Alanine Aminotransferase 14 units/L (7-56); Albumin 4.9 g/dL (3.9-5); BUN/Creatinine Ratio 15; Blood Urea Nitrogen 12 mg/dL (7-17); Calcium 10.2 mg/dL (8.4-10.2); Hemolysis Index 15
== END 2020-01-05 15:25 | disposition home or self-care (01) ==
LOC: ED 11:08
DX: M54.89 Other dorsalgia (principal); G89.29 Other chronic pain; I10 Essential (primary) hypertension; E11.9 Type 2 diabetes mellitus without complications; J45.909 Unspecified asthma, uncomplicated; Z79.899 Other long term (current) drug therapy
CPT/HCPCS: 36415; 80053; 81001; 85025

== ENCOUNTER 2020-02-18 18:28 | Emergency (ER) | payer MEDICARE ==
[2020-02-18 18:42] VITALS: BP 168/98
--- NOTE | 2020-02-18 19:35 | Event Note ---
ED Screening Note Date of service: 02/18/20 Time: 19:32 ED Screening Note: This is a 65-year-old female presents the ED complaining of right back thoracic pain x2 days Denies chest pain, abdominal pain, shortness of breath or urinary symptoms This initial assessment/diagnostic orders/clinical plan/treatment(s) is/are subject to change based on patients health status, clinical progression and re- assessment by fellow clinical providers in the ED. Further treatment and workup at subsequent clinical providers discretion. Patient/guardian urged not to elope from the ED as their condition may be serious if not clinically assessed and managed. Initial orders include: xr chest
--- NOTE | 2020-02-18 20:12 | XRay Report ---
CHEST 2 VIEWS INDICATION: pain. COMPARISON: Chest x-ray from 10/24/2017 FINDINGS: SUPPORT DEVICES: None. HEART: Within normal limits. LUNGS/PLEURA: No acute air space or interstitial disease. No pneumothorax. ADDITIONAL FINDINGS: None. IMPRESSION: 1. No acute findings. Signer Name: Jonnie Helton MD Signed: 02/18/2020 8:07 PM Workstation Name: [id number]
[2020-02-18] MEDS ORDERED: KETOROLAC 60 MG/2 ML INJ IM ONE (22:09)
[2020-02-18 22:56] LABS: Bilirubin,Urine NEG (Negative); Blood,Urine SM (Negative); Color,Urine Straw (Yellow); Mucus,Urine FEW /HPF; Protein,Urine <15 mg/dL mg/dL (Negative); Urobilinogen,Urine < 2.0 mg/dL (<2.0)
--- NOTE | 2020-02-18 22:57 | Emergency Department Report ---
HPI - General Chief Complaint: Back Pain/Injury Time Seen by Provider: 02/18/20 21:53 - HPI HPI: 65-year-old -[place] female presents to the emergency department with complaint of some right-sided mid back pain that started around 3:00 this aftern oon while the patient was having a bowel movement. She admits to having some recent issues with constipation and has been taking medication for that. She denies any dysuria, fever, nausea, vomiting, vaginal bleeding or discharge, chest pain or shortness of breath. The pain worsens with movement. She has a past medical history of asthma, diabetes, hypertension, sleep apnea. She has not taken anything for symptoms prior to presentation. No recent travel or sick contacts at home. ED Past Medical Hx - Past Medical History Previous Medical History?: Yes Hx Hypertension: Yes Hx Congestive Heart Failure: No Hx Diabetes: Yes Hx Deep Vein Thrombosis: No Hx Asthma: Yes Hx COPD: No Additional medical history: chronic back pain, Bronchitis, sleep apnea and CPAP,. gout, "neck problems" - Surgical History Past Surgical History?: Yes Additional Surgical History: L kidney removal - Social History Smoking Status: Never Smoker Substance Use Type: None - Medications Home Medications: Home Medications Medication Instructions Recorded Confirmed Last Taken Type Albuterol INH(or & Nicu Only) 2 puff IH QID PRN #1 pump 12/24/16 10/25/17 Unknown Rx [ProAir HFA Inhaler] Acetaminophen/Codeine [Tylenol 1 tab PO Q6H PRN #12 tab 10/26/17 Unknown Rx /Codeine # 3 tab] Gabapentin [Neurontin] 800 mg PO HS #30 capsule 10/26/17 Unknown Rx Lisinopril [Zestril] 40 mg PO DAILY #30 tablet 10/26/17 Unknown Rx Nortriptyline [Pamelor] 25 mg PO DAILY #30 capsule 10/26/17 Unknown Rx Simvastatin (Nf) [Zocor TAB] 20 mg PO DAILY #30 tablet 10/26/17 Unknown Rx allopurinoL [Zyloprim] 100 mg PO BID #60 tablet 10/26/17 Unknown Rx amLODIPine 10 mg PO DAILY #30 tablet 10/26/17 Unknown Rx metFORMIN [Glucophage] 500 mg PO BID #60 tablet 10/26/17 Unknown Rx methOCARBAMOL [Robaxin TAB] 500 mg PO Q6H PRN #15 tablet 10/26/17 Unknown Rx Clindamycin [Clindamycin CAP] 300 mg PO Q8H 7 Days cap 05/03/18 Unknown Rx HYDROcodone/APAP 5-325 [[place] 1 each PO Q4HR PRN #12 tablet 05/03/18 Unknown Rx 5/325] Ibuprofen [Motrin] 600 mg PO Q8H PRN #20 tablet 05/03/18 Unknown Rx Valacyclovir HCl [Valtrex] 1,000 mg PO BID #20 tablet 12/23/18 Unknown Rx traMADoL [Ultram 50 MG tab] 50 mg PO Q6HR PRN #12 tablet 12/23/18 Unknown Rx Ciprofloxacin HCl [Ciprofloxacin 500 mg PO Q12HR #14 tab 06/07/19 Unknown Rx TAB] Ondansetron [Zofran Odt] 4 mg PO Q8HR PRN #14 tab.rapdis 06/07/19 Unknown Rx metroNIDAZOLE [Flagyl] 500 mg PO Q12HR #14 tab 06/07/19 Unknown Rx traMADoL [Ultram 50 MG tab] 50 mg PO Q4HR PRN #14 tablet 06/07/19 Unknown Rx methOCARBAMOL [Robaxin TAB] 500 mg PO BID #20 tab 01/05/20 Unknown Rx Cyclobenzaprine [Flexeril] 10 mg PO TID PRN #12 tablet 02/18/20 Unknown Rx ED Review of Systems ROS: Stated complaint: RIB PAIN Other details as noted in HPI Comment: All other systems reviewed and negative Constitutional: denies: chills, fever Eyes: denies: eye pain, vision change ENT: denies: ear pain, throat pain Respiratory: denies: cough, shortness of breath Cardiovascular: denies: chest pain, palpitations Gastrointestinal: denies: abdominal pain, vomiting Genitourinary: denies: dysuria, discharge Musculoskeletal: back pain. denies: arthralgia Skin: denies: rash, lesions Neurological: denies: headache, weakness Physical Exam - Physical Exam Vital Signs: Vital Signs 02/18/20 18:37 Temperature 98.1 F Pulse Rate 108 H Respiratory 20 Rate Blood Pressure 168/98 O2 Sat by Pulse 98 Oximetry Physical Exam: GENERAL: The patient is well-developed well-nourished. HENT: Normocephalic. Atraumatic. Patient has moist mucous membranes. EYES: Extraocular motions are intact. NECK: Supple. Trachea is midline. CHEST/LUNGS: Clear to auscultation. There is no respiratory distress noted. HEART/CARDIOVASCULAR: Regular. There is no tachycardia. ABDOMEN: Abdomen is soft, nontender. Patient has normal bowel sounds. SKIN: Skin is warm and dry. NEURO: The patient is awake, alert, and oriented. The patient is cooperative. Normal speech. MUSCULOSKELETAL: There is no tenderness or deformity. There is no evidence of acute injury. BACK: No midline thoracic or lumbar tenderness to palpation, step-off or deformity. There is reproducible right thoracic or lumbar paraspinal tenderness to palpation. Positive right-sided CVA tenderness to palpation. ED Course Vital Signs 02/18/20 18:37 Temperature 98.1 F Pulse Rate 108 H Respiratory 20 Rate Blood Pressure 168/98 O2 Sat by Pulse 98 Oximetry ED Medical Decision Making - Radiology Data Radiology results: image reviewed interpreted by me: Chest x-ray does not show any acute process. There are no pleural effusions, obvious pneumonia and there is no pneumothorax. - Medical Decision Making This patient presents with the complaint of some right-sided mid back pain that started around 5:00 this afternoon while she was having a bowel movement. On examination there is no midline thoracic or lumbar tenderness to palpation, step-off or deformity. There is some reproducible right-sided paraspinal tenderness palpation at the thoracolumbar junction. Because of this she is also positive for CVA tenderness on this side. The patient denies any dysuria, hematuria. Urinalysis does not show any urinary tract infection or hematuria. A chest x-ray was done to triage that does not show any pneumonia, pneumothorax, focal consolidation, pleural effusions, or any other acute process. The patient was given a shot of Toradol and upon reevaluation she is feeling greatly improved. Her back pain was reproducible to palpation and with certain movements of the torso. For these reasons it appears to be musculoskeletal. Patient will be discharged home with some muscle relaxer. She will return to the ER with any worsening of her symptoms or any acute distress. Critical Care Time: No Critical care attestation.: If time is entered above; I have spent that time in minutes in the direct care of this critically ill patient, excluding procedure time. ED Disposition Clinical Impression: Muscle spasm Back pain Qualifiers: Back pain location: back pain in unspecified location Chronicity: unspecified Back pain laterality: right Qualified Code(s): M54.9 - Dorsalgia, unspecified Disposition: DC- TO HOME OR SELFCARE Is pt being admited?: No Condition: Stable Instructions: Muscle Spasm (ED), Back Pain (ED) Additional Instructions: Please follow-up with your primary care physician in the next few days. Return to the emergency department with any worsening of your symptoms or any acute distress. Prescriptions: Cyclobenzaprine [Flexeril] 10 mg PO TID PRN #12 tablet PRN Reason: Muscle Spasm Referrals: PRIMARY CARE, [Primary Care Provider] - 2-3 Days Time of Disposition: 23:23
== END 2020-02-18 23:52 | disposition home or self-care (01) ==
LOC: ED 18:28
DX: M62.830 Muscle spasm of back (principal); K59.00 Constipation, unspecified; I10 Essential (primary) hypertension; E11.9 Type 2 diabetes mellitus without complications; J45.909 Unspecified asthma, uncomplicated; G89.29 Other chronic pain; Z79.899 Other long term (current) drug therapy
CPT/HCPCS: 71046; 81001; 96372; 99283; J1885

== ENCOUNTER 2020-08-18 13:57 | Outpatient (CLI) | payer MEDICARE ==
[2020-08-18 14:45] LABS: Basophils % (Auto) 0.6 % (0.0-1.8); Eosinophils # (Auto) 0.2 K/mm3 (0.0-0.4); Eosinophils % (Auto) 2.9 % (0.0-4.3); Hematocrit 37.7 % (30.3-42.9); Hemoglobin 12.4 gm/dl (10.1-14.3); Lymphocytes # (Auto) 1.7 K/mm3 (1.2-5.4); Lymphocytes % (Auto) 23.6 % (13.4-35.0); Mean Corpuscular HGB Conc 33 % (30-34); Mean Corpuscular Volume 82 fl (79-97); Monocytes # (Auto) 0.4 K/mm3 (0.0-0.8); Monocytes % (Auto) 5.2 % (0.0-7.3); Platelet Count 196 K/mm3 (140-440); Red Blood Count 4.62 M/mm3 (3.65-5.03); Red Cell Distribution Width 14.9 % (13.2-15.2)
[2020-08-18 14:49] LABS: Bacteria,Urine 1+ /HPF (Negative); Bilirubin,Urine NEG (Negative); Blood,Urine NEG (Negative); Color,Urine Yellow (Yellow); Mucus,Urine 1+ /HPF; Urobilinogen,Urine < 2.0 mg/dL (<2.0)
[2020-08-18 14:58] LABS: BUN/Creatinine Ratio 17; Blood Urea Nitrogen 15 mg/dL (7-17); Hemolysis Index 6
[2020-08-18 15:07] LABS: Creatinine,Urine 406.5 mg/dL (0.1-20.0); Protein/Creatinine Ratio,Urine 0.12
== END 2020-08-18 13:58 | disposition home or self-care (01) ==
LOC: LAB 13:57
PROVIDERS: ATTEND Internal Medicine Nephrology
DX: N18.1 Chronic kidney disease, stage 1 (principal)
CPT/HCPCS: 36415; 80048; 81001; 82570; 84156; 85025

== ENCOUNTER 2020-11-17 07:30 | Outpatient (CLI) | payer MEDICARE ==
--- NOTE | 2020-11-17 08:42 | Mammography Report ---
DIGITAL SCREENING MAMMOGRAM WITH CAD, 11/17/2020 CLINICAL INFORMATION / INDICATION: Routine screening mammography. TECHNIQUE: Digital bilateral 2D mammography was obtained in the craniocaudal and mediolateral obliqu e projections. This examination was interpreted with the benefit of Computer-Aided Detection analysis . COMPARISON: 11/17/2019, 07/10/2017, 07/09/2016 FINDINGS: Breast Density: There are scattered areas of fibroglandular density. No dominant mass, suspicious calcifications, or architectural distortion in either breast. IMPRESSION: No mammographic evidence of malignancy. Follow up recommendation: Routine yearly BI-RADS Category 1: Negative. A "normal" or negative report should not discourage follow up or biopsy of a clinically significant f inding. A written summary of these findings will be mailed to the patient. The patient will be entered into a mammography reporting system which will generate a reminder letter for the patient's next appointmen t at the appropriate interval. The [employer] recommends yearly mammograms starting at age 40 and continuing as l peggy as a woman is in good health. Breast MRI is recommended for women with an approximate 20-25% or greater lifetime risk of breast cancer, including women with a strong family history of breast or ova paxton cancer or who have been treated for Hodgkin's disease. Signer Name: Roseanna Medrano MD Signed: 11/17/2020 8:37 AM Workstation Name: [email or web address]
== END 2020-11-17 07:31 | disposition home or self-care (01) ==
LOC: MAMMO 07:30
PROVIDERS: ATTEND Family Medicine
DX: Z12.31 Encounter for screening mammogram for malignant neoplasm of breast (principal)
CPT/HCPCS: 77067

== ENCOUNTER 2021-02-23 10:33 | Outpatient (CLI) | payer MEDICARE ==
[2021-02-23 11:17] LABS: Basophils % (Auto) 0.9 % (0.0-1.8); Eosinophils # (Auto) 0.2 K/mm3 (0.0-0.4); Eosinophils % (Auto) 3.5 % (0.0-4.3); Hematocrit 38.5 % (30.3-42.9); Hemoglobin 12.8 gm/dl (10.1-14.3); Lymphocytes # (Auto) 1.5 K/mm3 (1.2-5.4); Lymphocytes % (Auto) 26.6 % (13.4-35.0); Mean Corpuscular HGB Conc 33 % (30-34); Mean Corpuscular Volume 80 fl (79-97); Monocytes # (Auto) 0.3 K/mm3 (0.0-0.8); Monocytes % (Auto) 5.2 % (0.0-7.3); Platelet Count 184 K/mm3 (140-440); Red Blood Count 4.79 M/mm3 (3.65-5.03)
[2021-02-23 11:20] LABS: Bilirubin,Urine NEG (Negative); Blood,Urine SM (Negative); Color,Urine Yellow (Yellow); Mucus,Urine FEW /HPF; Protein,Urine <15 mg/dL mg/dL (Negative); Urobilinogen,Urine < 2.0 mg/dL (<2.0)
[2021-02-23 11:52] LABS: BUN/Creatinine Ratio 18; Blood Urea Nitrogen 14 mg/dL (7-17); Hemolysis Index 0
[2021-02-23 11:55] LABS: Creatinine,Urine 159.8 mg/dL (0.1-20.0); Protein/Creatinine Ratio,Urine 0.16
== END 2021-02-23 10:34 | disposition home or self-care (01) ==
LOC: LAB 10:33
PROVIDERS: ATTEND Internal Medicine Nephrology
DX: N18.1 Chronic kidney disease, stage 1 (principal)
CPT/HCPCS: 36415; 80048; 81001; 82570; 84156; 85025

== ENCOUNTER 2021-11-23 08:12 | Outpatient (CLI) | payer MEDICARE ==
--- NOTE | 2021-11-24 13:28 | Mammography Report ---
DIGITAL SCREENING MAMMOGRAM WITH CAD, 11/23/2021 CLINICAL INFORMATION / INDICATION: Routine screening mammography. SCREENING MAMMOGRAM TECHNIQUE: Digital bilateral 2D mammography was obtained in the craniocaudal and mediolateral obliqu e projections. This examination was interpreted with the benefit of Computer-Aided Detection analysis . COMPARISON: 11/17/20, 11/17/19 FINDINGS: Breast Density: The breasts are almost entirely fatty. No dominant mass, suspicious calcifications, or architectural distortion in either breast. IMPRESSION: No mammographic evidence of malignancy. No significant change. Follow up recommendation: Routine yearly BI-RADS Category 1: NEGATIVE A "normal" or negative report should not discourage follow up or biopsy of a clinically significant f inding. A written summary of these findings will be mailed to the patient. The patient will be entered into a mammography reporting system which will generate a reminder letter for the patient's next appointmen t at the appropriate interval. The [employer] recommends yearly mammograms starting at age 40 and continuing as l peggy as a woman is in good health. Breast MRI is recommended for women with an approximate 20-25% or greater lifetime risk of breast cancer, including women with a strong family history of breast or ova paxton cancer or who have been treated for Hodgkin's disease. Signer Name: Jason Siddiqui MD Signed: 11/24/2021 1:23 PM Workstation Name: [id number]
== END 2021-11-23 08:13 | disposition home or self-care (01) ==
LOC: MAMMO 08:12
PROVIDERS: ATTEND Family Medicine
DX: Z12.31 Encounter for screening mammogram for malignant neoplasm of breast (principal)
CPT/HCPCS: 77067

== ENCOUNTER 2022-01-13 09:28 | Emergency (ER) | payer MEDICARE ==
--- NOTE | 2022-01-13 12:42 | XRay Report ---
CHEST 2 VIEWS INDICATION / CLINICAL INFORMATION: cough. COMPARISON: 02/18/2020 FINDINGS: SUPPORT DEVICES: None. HEART / MEDIASTINUM: No significant abnormality. LUNGS / PLEURA: No significant pulmonary or pleural abnormality. No pneumothorax. ADDITIONAL FINDINGS: No significant additional findings. IMPRESSION: 1. No acute findings. Signer Name: Alejo Booth MD Signed: 01/13/2022 12:38 PM Workstation Name: [email or web address]
[2022-01-13 12:53] LABS: Hematocrit 37.8 % (30.3-42.9); Hemoglobin 12.2 gm/dl (10.1-14.3); Mean Corpuscular HGB Conc 32 % (30-34); Mean Corpuscular Volume 80 fl (79-97); Platelet Count 173 K/mm3 (140-440); Red Blood Count 4.71 M/mm3 (3.65-5.03); Red Cell Distribution Width 14.9 % (13.2-15.2)
[2022-01-13 13:07] LABS: Alanine Aminotransferase 10 units/L (7-56); Albumin 4.6 g/dL (3.9-5); BUN/Creatinine Ratio 9; Blood Urea Nitrogen 7 mg/dL (7-17); Calcium 9.5 mg/dL (8.4-10.2); Hemolysis Index 2
[2022-01-13] MEDS ORDERED: BENZONATATE 100 MG CAP PO ONE (13:15)
[2022-01-13] MEDS ORDERED: predniSONE 20 MG TAB PO ONE (13:15)
--- NOTE | 2022-01-13 13:22 | Emergency Department Report ---
- General Chief Complaint: Dyspnea/Respdistress Stated Complaint: COUGHED UP BLOOD Time Seen by Provider: 01/13/22 11:54 Source: patient Mode of arrival: Ambulatory Limitations: No Limitations - History of Present Illness Initial Comments: 66-year-old black female with a past medical history of hypertension, diabetes, hyperlipidemia, asthma, and gout presents to the emergency department for evaluation of few day history of persistent cough, burning in her throat, and coughing up what looked like fluid. She states that she has been coughing for several days but when she coughed yesterday, she coughed up what looked like some very thick mucus with one speck of blood in it. She states that it is only happened that 1 time. She denies fever, shortness of breath but states that she has had some nasal congestion and sinus pain and pressure. She also complains of streaks of blood in her stool, she states that for several months she has had intermittent blood in her stools and over the past few days she has noticed a streak intermittently whenever she has a bowel movement. She states that she has seen her primary care provider about same a couple of weeks ago. She denies any feli red blood, abdominal pain, dizziness, and weakness. MD Complaint: cough, sore throat, rhinorrhea, nasal congestion, sinus pain -: Gradual, days(s) (2-3) Severity: mild Severity scale (0 -10): 3 Quality: burning Consistency: intermittent Associated Symptoms: rhinorrhea, nasal congestion, sore throat, cough. denies: fever, chills, myalgias, diaphoresis, headache, stiff neck, chest pain, shortness of breath, abdominal pain, nausea, vomiting, diarrhea, dysuria, rash - Related Data Previous Rx's Medication Instructions Recorded Last Taken Type Albuterol Mdi (or & Nicu Only) 2 puff IH QID PRN #1 pump 12/24/16 Unknown Rx [ProAir HFA Inhaler] Acetaminophen/Codeine [Tylenol 1 tab PO Q6H PRN #12 tab 10/26/17 Unknown Rx /Codeine # 3 tab] Gabapentin [Neurontin] 800 mg PO HS #30 capsule 10/26/17 Unknown Rx Lisinopril [Zestril] 40 mg PO DAILY #30 tablet 10/26/17 Unknown Rx Nortriptyline [Pamelor] 25 mg PO DAILY #30 capsule 10/26/17 Unknown Rx Simvastatin (Nf) [Zocor TAB] 20 mg PO DAILY #30 tablet 10/26/17 Unknown Rx allopurinoL [Zyloprim] 100 mg PO BID #60 tablet 10/26/17 Unknown Rx amLODIPine 10 mg PO DAILY #30 tablet 10/26/17 Unknown Rx metFORMIN [Glucophage] 500 mg PO BID #60 tablet 10/26/17 Unknown Rx methOCARBAMOL [Robaxin TAB] 500 mg PO Q6H PRN #15 tablet 10/26/17 Unknown Rx Clindamycin [Clindamycin CAP] 300 mg PO Q8H 7 Days cap 05/03/18 Unknown Rx HYDROcodone/APAP 5-325 [[place] 1 each PO Q4HR PRN #12 tablet 05/03/18 Unknown Rx 5/325] Ibuprofen [Motrin] 600 mg PO Q8H PRN #20 tablet 05/03/18 Unknown Rx Valacyclovir HCl [Valtrex] 1,000 mg PO BID #20 tablet 12/23/18 Unknown Rx traMADoL [Ultram 50 MG tab] 50 mg PO Q6HR PRN #12 tablet 12/23/18 Unknown Rx Ciprofloxacin HCl [Ciprofloxacin 500 mg PO Q12HR #14 tab 06/07/19 Unknown Rx TAB] Ondansetron [Zofran Odt] 4 mg PO Q8HR PRN #14 tab.rapdis 06/07/19 Unknown Rx metroNIDAZOLE [Flagyl] 500 mg PO Q12HR #14 tab 06/07/19 Unknown Rx traMADoL [Ultram 50 MG tab] 50 mg PO Q4HR PRN #14 tablet 06/07/19 Unknown Rx methOCARBAMOL [Robaxin TAB] 500 mg PO BID #20 tab 01/05/20 Unknown Rx Cyclobenzaprine [Flexeril] 10 mg PO TID PRN #12 tablet 02/18/20 Unknown Rx Benzonatate [Tessalon Perles] 100 mg PO Q8HR #21 cap 01/13/22 Unknown Rx guaiFENesin/CODEINE [Robitussin AC] 10 ml PO TID PRN #120 ml 01/13/22 Unknown Rx methylPREDNISolone [Medrol 4MG 4 mg PO DAILY #1 pack 01/13/22 Unknown Rx DOSEPAK (21 tabs)] Allergies Allergy/AdvReac Type Severity Reaction Status Date / Time No Known Allergies Allergy Verified 10/24/17 20:12 ED Review of Systems ROS: Stated complaint: COUGHED UP BLOOD Other details as noted in HPI Comment: All other systems reviewed and negative Constitutional: denies: chills, fever, weakness Eyes: denies: vision change ENT: congestion. denies: ear pain Respiratory: cough. denies: orthopnea, shortness of breath, SOB with exertion, SOB at rest, wheezing Cardiovascular: denies: chest pain, palpitations, dyspnea on exertion, orthopnea, edema, syncope, paroxysmal nocturnal dyspnea Gastrointestinal: denies: abdominal pain, nausea, vomiting, diarrhea, h ematemesis, melena, hematochezia Genitourinary: denies: urgency, dysuria, frequency, hematuria, discharge Skin: denies: rash, lesions Neurological: denies: headache, weakness, numbness, paresthesias, confusion, abnormal gait Psychiatric: denies: anxiety, depression ED Past Medical Hx - Past Medical History Hx Hypertension: Yes Hx Congestive Heart Failure: No Hx Diabetes: Yes Hx Deep Vein Thrombosis: No Hx Asthma: Yes Hx COPD: No Additional medical history: chronic back pain, Bronchitis, sleep apnea and CPAP,. gout, "neck problems" - Surgical History Additional Surgical History: L kidney removal - Social History Smoking Status: Never Smoker Substance Use Type: None - Medications Home Medications: Home Medications Medication Instructions Recorded Confirmed Last Taken Type Albuterol Mdi (or & Nicu Only) 2 puff IH QID PRN #1 pump 12/24/16 10/25/17 Unknown Rx [ProAir HFA Inhaler] Acetaminophen/Codeine [Tylenol 1 tab PO Q6H PRN #12 tab 10/26/17 Unknown Rx /Codeine # 3 tab] Gabapentin [Neurontin] 800 mg PO HS #30 capsule 10/26/17 Unknown Rx Lisinopril [Zestril] 40 mg PO DAILY #30 tablet 10/26/17 Unknown Rx Nortriptyline [Pamelor] 25 mg PO DAILY #30 capsule 10/26/17 Unknown Rx Simvastatin (Nf) [Zocor TAB] 20 mg PO DAILY #30 tablet 10/26/17 Unknown Rx allopurinoL [Zyloprim] 100 mg PO BID #60 tablet 10/26/17 Unknown Rx amLODIPine 10 mg PO DAILY #30 tablet 10/26/17 Unknown Rx metFORMIN [Glucophage] 500 mg PO BID #60 tablet 10/26/17 Unknown Rx methOCARBAMOL [Robaxin TAB] 500 mg PO Q6H PRN #15 tablet 10/26/17 Unknown Rx Clindamycin [Clindamycin CAP] 300 mg PO Q8H 7 Days cap 05/03/18 Unknown Rx HYDROcodone/APAP 5-325 [[place] 1 each PO Q4HR PRN #12 tablet 05/03/18 Unknown Rx 5/325] Ibuprofen [Motrin] 600 mg PO Q8H PRN #20 tablet 05/03/18 Unknown Rx Valacyclovir HCl [Valtrex] 1,000 mg PO BID #20 tablet 12/23/18 Unknown Rx traMADoL [Ultram 50 MG tab] 50 mg PO Q6HR PRN #12 tablet 12/23/18 Unknown Rx Ciprofloxacin HCl [Ciprofloxacin 500 mg PO Q12HR #14 tab 06/07/19 Unknown Rx TAB] Ondansetron [Zofran Odt] 4 mg PO Q8HR PRN #14 tab.rapdis 06/07/19 Unknown Rx metroNIDAZOLE [Flagyl] 500 mg PO Q12HR #14 tab 06/07/19 Unknown Rx traMADoL [Ultram 50 MG tab] 50 mg PO Q4HR PRN #14 tablet 06/07/19 Unknown Rx methOCARBAMOL [Robaxin TAB] 500 mg PO BID #20 tab 01/05/20 Unknown Rx Cyclobenzaprine [Flexeril] 10 mg PO TID PRN #12 tablet 02/18/20 Unknown Rx Benzonatate [Tessalon Perles] 100 mg PO Q8HR #21 cap 01/13/22 Unknown Rx guaiFENesin/CODEINE [Robitussin AC] 10 ml PO TID PRN #120 ml 01/13/22 Unknown Rx methylPREDNISolone [Medrol 4MG 4 mg PO DAILY #1 pack 01/13/22 Unknown Rx DOSEPAK (21 tabs)] ED Physical Exam - General Limitations: No Limitations General appearance: alert, in no apparent distress - Head Head exam: Present: atraumatic, normocephalic - Eye Eye exam: Present: normal appearance. Absent: scleral icterus, conjunctival injection - ENT ENT exam: Absent: normal exam (Bilateral nasal mucosal edema along with bilateral turbinate swelling and tenderness to maxillary and frontal sinus area s), normal orophraynx (Erythema noted to posterior oropharynx) - Neck Neck exam: Present: normal inspection, full ROM. Absent: tenderness, meningismus, lymphadenopathy - Respiratory Respiratory exam: Present: normal lung sounds bilaterally. Absent: respiratory distress, wheezes, rales, rhonchi, chest wall tenderness, accessory muscle use - Cardiovascular Cardiovascular Exam: Present: regular rate, normal heart sounds - GI/Abdominal GI/Abdominal exam: Present: soft, normal bowel sounds. Absent: distended, tenderness, guarding, rebound, rigid - Extremities Exam Extremities exam: Present: normal inspection, normal capillary refill. Absent: pedal edema, joint swelling, calf tenderness - Back Exam Back exam: Present: normal inspection. Absent: CVA tenderness (R), CVA tenderness (L), vertebral tenderness - Neurological Exam Neurological exam: Present: alert, oriented X3, normal gait, reflexes normal - Psychiatric Psychiatric exam: Present: normal affect, normal mood - Skin Skin exam: Present: warm, dry, intact, normal color ED Course Vital Signs 01/13/22 01/13/22 09:39 13:48 Temperature 98.3 F Pulse Rate 100 H 80 Respiratory 16 16 Rate Blood Pressure 147/79 Blood Pressure 136/80 [Left] O2 Sat by Pulse 96 99 Oximetry ED Medical Decision Making - Lab Data Result diagrams: 01/13/22 12:16 01/13/22 12:16 - Radiology Data Radiology results: report reviewed, image reviewed Chest x-ray: FINDINGS: SUPPORT DEVICES: None. HEART / MEDIASTINUM: No significant abnormality. LUNGS / PLEURA: No significant pulmonary or pleural abnormality. No pneumothorax. ADDITIONAL FINDINGS: No significant additional findings. IMPRESSION: 1. No acute findings. - Medical Decision Making 66-year-old black female with a past medical history of hypertension, diabetes, hyperlipidemia, asthma, and gout presents to the emergency department for evaluation of few day history of persistent cough, burning in her throat, and coughing up what looked like fluid. She states that she has been coughing for several days but when she coughed yesterday, she coughed up what looked like some very thick mucus with one speck of blood in it. She states that it is only happened that 1 time. She denies fever, shortness of breath but states that she has had some nasal congestion and sinus pain and pressure. She also complains of streaks of blood in her stool, she states that for several months she has had intermittent blood in her stools and over the past few days she has noticed a streak intermittently whenever she has a bowel movement. She states that she has seen her primary care provider about same a couple of weeks ago. She denies any feli red blood, abdominal pain, dizziness, and weakness. No gross abnormalities noted on exam. Exam consistent with URI with cough and congestion. No abnormalities noted on labs and chest x-ray with no acute abnormalities noted. Patient will be treated with steroid pack, Tessalon Perles, and Robitussin-AC. She is advised to take medications as prescribed and follow-up with primary care provider and gastroenterology for further evaluation and management. She is advised to return to the emergency department for any concerning symptoms. She verbalizes understanding of and agreement with plan of care. Critical care attestation.: If time is entered above; I have spent that time in minutes in the direct care of this critically ill patient, excluding procedure time. ED Disposition Clinical Impression: URI with cough and congestion, Blood in stool Disposition: 01 HOME / SELF CARE / HOMELESS Is pt being admited?: No Does the pt Need Aspirin: No Condition: Stable Instructions: Cough, Adult, [id number], Upper Respiratory Infection, Adult, [id number], Gastrointestinal Bleeding, [id number] Additional Instructions: Take medications as prescribed. Follow-up with primary care provider if no improvement or worsening symptoms. Follow-up with GI for further evaluation. Return to the emergency department as needed. Prescriptions: methylPREDNISolone [Medrol 4MG DOSEPAK (21 tabs)] 4 mg PO DAILY #1 pack guaiFENesin/CODEINE [Robitussin AC] 10 ml PO TID PRN #120 ml PRN Reason: Cough Benzonatate [Tessalon Perles] 100 mg PO Q8HR #21 cap Referrals: SHAKILA BAILEY MD [Staff Physician] - 3-5 Days Time of Disposition: 13:22
[2022-01-13 13:49] VITALS: BP 136/80
== END 2022-01-13 13:49 | disposition home or self-care (01) ==
LOC: ED 09:28
DX: J06.9 Acute upper respiratory infection, unspecified (principal); K92.1 Melena; I10 Essential (primary) hypertension; E11.9 Type 2 diabetes mellitus without complications; J45.909 Unspecified asthma, uncomplicated
CPT/HCPCS: 36415; 71046; 80053; 85027; 99283

== ENCOUNTER 2022-02-26 09:24 | Outpatient (CLI) | payer MEDICARE ==
[2022-03-01 10:31] LABS: Basophils # (Auto) 0.1 K/mm3 (0.0-0.1); Basophils % (Auto) 2.8 % (0.0-1.8); Eosinophils # (Auto) 0.3 K/mm3 (0.0-0.4); Eosinophils % (Auto) 4.9 % (0.0-4.3); Hemoglobin 12.7 gm/dl (10.1-14.3); Lymphocytes # (Auto) 0.9 K/mm3 (1.2-5.4); Lymphocytes % (Auto) 17.6 % (13.4-35.0); Mean Corpuscular HGB Conc 32 % (30-34); Mean Corpuscular Volume 82 fl (79-97); Monocytes # (Auto) 0.3 K/mm3 (0.0-0.8); Monocytes % (Auto) 5.6 % (0.0-7.3); Platelet Count 175 K/mm3 (140-440); Red Blood Count 4.87 M/mm3 (3.65-5.03); Red Cell Distribution Width 15.6 % (13.2-15.2)
[2022-03-01 10:32] LABS: Bilirubin,Urine NEG (Negative); Blood,Urine NEG (Negative); Color,Urine Yellow (Yellow); RBC,Urine < 1.0 /HPF (0.0-6.0); Urobilinogen,Urine < 2.0 mg/dL (<2.0); WBC,Urine < 1.0 /HPF (0.0-6.0)
[2022-03-01 10:39] LABS: Bacteria,Urine 1+ /HPF (Negative); Hyaline Casts,Urine 17 /LPF; Mucus,Urine 1+ /HPF
[2022-03-01 10:43] LABS: BUN/Creatinine Ratio 14; Blood Urea Nitrogen 13 mg/dL (7-17); Hemolysis Index 0
[2022-03-04 16:59] LABS: ANA Screen, IFA Negative (Negative)
[2022-03-04 20:55] LABS: Myeloperoxidase Antibody <1.0 AI (<1.0)
[2022-03-05 00:57] LABS: Albumin 4.4 g/dL (3.8-4.8); Gamma Globulin 0.9 g/dL (0.8-1.7)
[2022-03-05 15:23] LABS: Vitamin D, 25-OH, D2 <4 ng/mL
[2022-03-30 16:46] LABS: Abnormal Protein Band 1 SEE SCANNED RESULT; Abnormal Protein Band 2 SEE SCANNED RESULT; Albumin SEE SCANNED RESULT; Creatinine, Random Urine SEE SCANNED RESULT; Gamma Globulin SEE SCANNED RESULT; Protein/Creatinine Ratio SEE SCANNED RESULT
[2022-03-30 16:47] LABS: Interpretation SEE SCANNED RESULT
== END 2022-02-26 09:25 | disposition home or self-care (01) ==
LOC: LAB 09:24
PROVIDERS: ATTEND Internal Medicine Nephrology
DX: I12.9 Hypertensive chronic kidney disease with stage 1 through stage 4 chronic kidney disease, or unspecified chronic kidney disease (principal); E55.9 Vitamin D deficiency, unspecified; N25.81 Secondary hyperparathyroidism of renal origin; N18.9 Chronic kidney disease, unspecified
CPT/HCPCS: 36415; 80048; 81001; 82306; 82565; 82570; 82575; 84100; 84165; 84166; 85025; 86021; 86038; 87086